=== PATIENT | male | born 1975 | race Caucasian/White ===

== ENCOUNTER → 2018-03-08 11:32 | Outpatient (CLI) | payer OTHER, SELFPAY | PROVIDERS: PCP Nurse Practitioner; Visit Provider Nurse Practitioner | DX: Z00.8 Encounter for other general examination (principal) ==

== ENCOUNTER → 2022-01-28 11:06 | Outpatient (CLI) | payer OTHER, SELFPAY ==
[2022-01-28 20:22] LABS: Basophils # 0.1 K/mm3 (0-0.2); Basophils % 0.7 % (0.1-2.0); Eosinophils # 0.5 K/mm3 (0.0-0.4); Eosinophils % 4.4 % (0.1-12.0); Hematocrit 44.8 % (42.0-52.0); Hemoglobin 14.3 g/dL (14.1-18.0); Lymphocytes # 2.6 K/mm3 (0.7-4.5); Lymphocytes % 22.5 % (10-50); Mean Corpuscular Hemoglobin 32.1 pg (27.0-31.2); Mean Corpuscular Volume 100.2 fl (80-94); Mean Platelet Volume 9.3 fl (7.4-10.4); Monocytes # 0.8 K/mm3 (0.1-1.0); Monocytes % 7.2 % (1.7-9.3); Neutrophils # 7.6 K/mm3 (1.8-7.8); Neutrophils % 65.2 % (37.0-80.0); Platelet Count 348 K/mm3 (142-424); Red Blood Count 4.47 M/mm3 (4.60-6.20); Red Cell Distribution Width 13.9 % (11.5-17.5); White Blood Count 11.6 K/mm3 (4.8-10.8)
[2022-01-28 21:10] LABS: Hemoglobin A1C 5.7 % (4.0-6.0)
[2022-01-28 21:11] LABS: Alanine Aminotransferase 24 U/L (12-78); Albumin Level 4.3 g/dl (3.5-5.0); Albumin/Globulin Ratio 1.6 (1.1-1.8); Alkaline Phosphatase 138 U/L (38-126); Aspartate Amino Transferase 33 U/L (17-59); Bilirubin,Total 0.2 mg/dl (0.2-1.3); Blood Urea Nitrogen 17 mg/dl (9-20); Calcium 9.6 mg/dl (8.4-10.2); Carbon Dioxide 28 mmol/L (22.0-30.0); Chloride 100 mmol/L (98-107); Cholesterol 171 mg/dl (140-200); Estimated Glomerular Filt Rate 90 ml/min (>60); GFR (African American) 109 ML/MIN (>60); Globulin 2.7 g/dL (1.3-3.2); Glucose 99 mg/dl (74-100); HDL Cholesterol 34 mg/dl (40-60); Sodium 139 mmol/L (136-145); Triglycerides 266 mg/dl (30-150); VLDL Cholesterol 53 mg/dL (0-40)
[2022-01-28 21:28] LABS: Direct LDL Cholesterol 96.94 mg/dL (100-129)
[2022-01-28 23:06] LABS: 25-OH Vitamin D, Total 35.9 ng/mL (30-100)
== END ==
PROVIDERS: PCP Nurse Practitioner; Visit Provider Nurse Practitioner
DX: J06.9 Acute upper respiratory infection, unspecified (principal); I10 Essential (primary) hypertension; E55.9 Vitamin D deficiency, unspecified; E78.5 Hyperlipidemia, unspecified; E11.9 Type 2 diabetes mellitus without complications
CPT/HCPCS: 80053; 80061; 82306; 83036; 85025

== ENCOUNTER → 2022-05-27 23:30 | Outpatient (CLI) | payer OTHER, SELFPAY ==
[2022-05-27 18:37] LABS: Basophils # 0.1 K/mm3 (0-0.2); Basophils % 0.7 % (0.1-2.0); Eosinophils # 0.6 K/mm3 (0.0-0.4); Eosinophils % 4.6 % (0.1-12.0); Hematocrit 47.7 % (42.0-52.0); Hemoglobin 16.4 g/dL (14.1-18.0); Lymphocytes # 3.3 K/mm3 (0.7-4.5); Lymphocytes % 27.4 % (10-50); Mean Corpuscular HGB Conc 34.4 g/dL (31.8-35.4); Mean Corpuscular Volume 95.9 fl (80-94); Mean Platelet Volume 8.3 fl (7.4-10.4); Monocytes # 0.7 K/mm3 (0.1-1.0); Monocytes % 5.6 % (1.7-9.3); Neutrophils # 7.3 K/mm3 (1.8-7.8); Neutrophils % 61.7 % (37.0-80.0); Platelet Count 374 K/mm3 (142-424); Red Blood Count 4.97 M/mm3 (4.60-6.20); White Blood Count 11.9 K/mm3 (4.8-10.8)
== END ==
PROVIDERS: PCP Nurse Practitioner; Visit Provider Nurse Practitioner
DX: J44.9 Chronic obstructive pulmonary disease, unspecified (principal); R05.3 Chronic cough
CPT/HCPCS: 85025

== ENCOUNTER → 2022-05-29 11:15 | Outpatient (CLI) | payer OTHER, SELFPAY ==
--- NOTE | 2022-05-29 11:19 | XR_ITS ---
FINAL REPORT CLINICAL HISTORY: cough, COPD, diminished breath sounds RML FINDINGS: PA and lateral views of the chest are obtained. There is no prior exam for comparison. The cardiac and mediastinal silhouettes are within normal limits. The lungs are clear. There is no pleural effusion, pneumothorax, or acute osseous abnormality. IMPRESSION: No radiographic evidence of acute cardiac or pulmonary disease. Reviewed, Interpreted and Dictated by Erin Bernstein MD Transcribed by Jannet Acevedo Authenticated and [facility]
--- NOTE | 2022-05-29 11:19 | XR_ITS ---
FINAL REPORT CLINICAL HISTORY: neck pain with bilateral UE radiculopathy FINDINGS: AP, lateral, and odontoid views of the cervical spine were obtained. The odontoid view is limited as the tip of the odontoid process is obscured by overlying soft tissue. The lateral masses of C1 and C2 are aligned. On the lateral view, there is no fracture or malalignment. There is multilevel degenerative disc disease, most pronounced at C5-6 and C6-7. Precervical soft tissues are within normal limits. IMPRESSION: Multilevel degenerative disc disease. Reviewed, Interpreted and Dictated by Erin Bernstein MD Transcribed by Jannet Acevedo Authenticated and [facility]
== END ==
PROVIDERS: PCP Nurse Practitioner; Visit Provider Nurse Practitioner
DX: J44.9 Chronic obstructive pulmonary disease, unspecified (principal); R05.3 Chronic cough; M54.2 Cervicalgia; M54.12 Radiculopathy, cervical region
CPT/HCPCS: 71046; 72040

== ENCOUNTER → 2023-01-20 08:27 | Outpatient (CLI) | payer OTHER, SELFPAY ==
[2023-01-20 19:24] LABS: Alanine Aminotransferase 44 U/L (12-78); Albumin Level 4.6 g/dl (3.5-5.0); Albumin/Globulin Ratio 1.4 (1.1-1.8); Alkaline Phosphatase 121 U/L (38-126); Anion Gap 16.1 mEq/L (5-15); Aspartate Amino Transferase 48 U/L (17-59); Bilirubin,Total 0.3 mg/dl (0.2-1.3); Blood Urea Nitrogen 13 mg/dl (9-20); Calcium 9.7 mg/dl (8.4-10.2); Carbon Dioxide 25 mmol/L (22.0-30.0); Chloride 102 mmol/L (98-107); Estimated Glomerular Filt Rate 71 ml/min (>60); GFR (African American) 86 ML/MIN (>60); Globulin 3.4 g/dL (1.3-3.2); Glucose 104 mg/dl (74-100); Potassium 4.1 mmoL/L (3.5-5.1); Sodium 139 mmol/L (136-145)
[2023-01-20 19:59] LABS: Basophils # 0.1 K/mm3 (0-0.2); Basophils % 0.5 % (0.1-2.0); Eosinophils # 0.4 K/mm3 (0.0-0.4); Eosinophils % 3.5 % (0.1-12.0); Hemoglobin 17.2 g/dL (14.1-18.0); Lymphocytes # 3.3 K/mm3 (0.7-4.5); Lymphocytes % 28.3 % (10-50); Mean Corpuscular HGB Conc 34.3 g/dL (31.8-35.4); Mean Corpuscular Volume 96.1 fl (80-94); Mean Platelet Volume 9.1 fl (7.4-10.4); Monocytes # 0.7 K/mm3 (0.1-1.0); Monocytes % 5.9 % (1.7-9.3); Neutrophils # 7.2 K/mm3 (1.8-7.8); Neutrophils % 61.8 % (37.0-80.0); Platelet Count 279 K/mm3 (142-424); Red Blood Count 5.21 M/mm3 (4.60-6.20); Red Cell Distribution Width 13.8 % (11.5-17.5); White Blood Count 11.7 K/mm3 (4.8-10.8)
== END ==
PROVIDERS: PCP Nurse Practitioner; Visit Provider Nurse Practitioner
DX: M79.671 Pain in right foot (principal); M79.672 Pain in left foot
CPT/HCPCS: 80053; 84550; 85025

== ENCOUNTER 2023-06-22 12:47 | Outpatient (CLI) | payer OTHER, SELFPAY ==
--- NOTE | 2023-06-22 13:58 | CT_ITS ---
FINAL REPORT CLINICAL HISTORY: lung cancer screening current smoker 1-2 ppd for 30 years hx copd FINDINGS: Axial images were obtained from the lung apex to the mid abdomen by computed tomography. Low-dose protocol was utilized. CTDl vol(mGy): 2.90 DLP (mGy-cm): 114.38 FINDINGS: There is no axillary adenopathy. There is no hilar or mediastinal adenopathy. There are moderate coronary artery calcifications. The heart size is normal. There is no pericardial or pleural effusion. Limited images of the upper abdomen demonstrate fatty infiltration of the liver. Lung window images demonstrate no suspicious infiltrate or nodule. There is mild scarring. IMPRESSION: Lung RADS category 1. Recommend 12 month follow-up low-dose chest CT. Reviewed, Interpreted and Dictated by Christiano Vasquez III, MD Transcribed by Lucia Montes Authenticated and [facility]
[2023-06-22] MEDS: ALBUTEROL 0.083% 2.5 MG/3 ML NEB IH (14:01)
--- NOTE | 2023-06-22 14:01 | PC.NURSE ---
Pre and Post Spirometry completed on Pt without incident. Albuterol 0.083% given via HHN, per protocol, Pt tolerated tx well.
== END 2023-06-22 23:59 ==
LOC: RT 12:47
PROVIDERS: PCP Nurse Practitioner; Visit Provider Nurse Practitioner
DX: J44.9 Chronic obstructive pulmonary disease, unspecified (principal); R05.3 Chronic cough; F17.210 Nicotine dependence, cigarettes, uncomplicated
CPT/HCPCS: 71271; 94060

== ENCOUNTER 2024-03-03 16:05 | Outpatient (CLI) | payer OTHER, SELFPAY ==
[2024-03-03 19:54] LABS: Microalbumin/Creatinine Ratio 77.1
[2024-03-03 20:02] LABS: Creatinine,Urine Random 121 mg/dL (Not Estab.)
== END 2024-03-03 23:59 | disposition home or self-care (01) ==
LOC: LAB.DROPOF 03-04 09:27
PROVIDERS: PCP Nurse Practitioner; Visit Provider Nurse Practitioner
DX: I10 Essential (primary) hypertension (principal); E78.5 Hyperlipidemia, unspecified; E11.9 Type 2 diabetes mellitus without complications; F41.9 Anxiety disorder, unspecified; J44.9 Chronic obstructive pulmonary disease, unspecified; Z12.5 Encounter for screening for malignant neoplasm of prostate; Z72.0 Tobacco use; Z79.84 Long term (current) use of oral hypoglycemic drugs
CPT/HCPCS: 82043; 82570

== ENCOUNTER 2024-03-07 10:06 | Outpatient (CLI) | payer OTHER, SELFPAY ==
[2024-03-07 10:36] LABS: Basophils # 0.1 K/mm3 (0-0.2); Basophils % 0.9 % (0.1-2.0); Eosinophils # 0.7 K/mm3 (0.0-0.4); Eosinophils % 5.5 % (0.1-12.0); Hematocrit 42.3 % (42.0-52.0); Hemoglobin 14.5 g/dL (14.1-18.0); Lymphocytes # 3.1 K/mm3 (0.7-4.5); Lymphocytes % 24.2 % (10-50); Mean Corpuscular HGB Conc 34.3 g/dL (31.8-35.4); Mean Corpuscular Hemoglobin 31.9 pg (27.0-31.2); Mean Corpuscular Volume 92.8 fl (80-94); Mean Platelet Volume 7.3 fl (7.4-10.4); Monocytes # 0.9 K/mm3 (0.1-1.0); Monocytes % 7.5 % (1.7-9.3); Neutrophils # 7.8 K/mm3 (1.8-7.8); Neutrophils % 61.8 % (37.0-80.0); Platelet Count 337 K/mm3 (142-424); Red Blood Count 4.56 M/mm3 (4.60-6.20); Red Cell Distribution Width 13.9 % (11.5-17.5); White Blood Count 12.6 K/mm3 (4.8-10.8)
[2024-03-07 10:47] LABS: Albumin Level 4.6 g/dl (3.5-5.0); Chloride 103 mmol/L (98-107); Potassium 4.3 mmoL/L (3.5-5.1); Sodium 139 mmol/L (136-145)
[2024-03-07 10:50] LABS: Alanine Aminotransferase 82 U/L (12-78); Albumin/Globulin Ratio 1.6 (1.1-1.8); Alkaline Phosphatase 84 U/L (38-126); Anion Gap 15.3 mEq/L (5-15); Aspartate Amino Transferase 46 U/L (17-59); Bilirubin,Total 0.5 mg/dl (0.2-1.3); Blood Urea Nitrogen 21 mg/dl (9-20); Carbon Dioxide 25 mmol/L (22.0-30.0); Cholesterol 235 mg/dl (140-200); Estimated Glomerular Filt Rate 64 ml/min (>60); GFR (African American) 78 ML/MIN (>60); Globulin 2.9 g/dL (1.3-3.2); Glucose 128 mg/dl (74-100); Total Protein,Serum 7.5 g/dl (6.3-8.2); Triglycerides 301 mg/dl (30-150); VLDL Cholesterol 60 mg/dL (0-40)
[2024-03-07 10:51] LABS: Chol/HDL Ratio 6.7 (1-3.5); HDL Cholesterol 35 mg/dl (40-60)
[2024-03-07 11:01] LABS: Direct LDL Cholesterol 145.86 mg/dL (100-129)
[2024-03-07 11:20] LABS: Thyroid Stimulating Hormone 3.15 uIU/mL (0.465-4.68)
[2024-03-07 12:08] LABS: Hemoglobin A1C 6.5 % (4.0-6.0)
[2024-03-07 12:39] LABS: Prostate Specific Ag Screen 1.3 ng/ml (0.0-4.0)
== END 2024-03-07 23:59 | disposition home or self-care (01) ==
PROVIDERS: PCP Nurse Practitioner; Visit Provider Nurse Practitioner
DX: J44.9 Chronic obstructive pulmonary disease, unspecified (principal); I10 Essential (primary) hypertension; E78.5 Hyperlipidemia, unspecified; E11.9 Type 2 diabetes mellitus without complications; F41.9 Anxiety disorder, unspecified; Z12.5 Encounter for screening for malignant neoplasm of prostate; Z72.0 Tobacco use; Z79.84 Long term (current) use of oral hypoglycemic drugs
CPT/HCPCS: 36415; 80050; 80053; 80061; 83036; 84443; 85025; G0103

== ENCOUNTER 2024-03-24 09:34 | Outpatient (CLI) | payer OTHER, SELFPAY ==
--- NOTE | 2024-03-24 12:42 | CT_ITS ---
FINAL REPORT TECHNIQUE: Axial CT images of the abdomen and pelvis were obtained before and after the administration of IV contrast. Oral contrast was administered.This study was performed with techniques to keep radiation doses as low as reasonably achievable (ALARA). Individualized dose reduction techniques using automated exposure control or adjustment of mA and/or kV according to the patient's size were employed. CLINICAL HISTORY: HEMATURIA COMPARISON: None FINDINGS: Abdomen: The lung bases are clear. The heart is normal in size. There is fatty infiltration of the liver without evidence of biliary ductal dilatation. . The spleen is unremarkable. No adrenal masses present. The pancreas has an unremarkable appearance. There is a 27 mm hypodense cyst in the medial right kidney. No evidence of renal stones, hydronephrosis, or ureteral stone is seen on either side. The aorta is normal in caliber. There is no free fluid or adenopathy. No mass or abnormal fluid collection is seen. Pelvis: The appendix is normal in appearance. Mild bladder wall thickening is present likely inflammatory. There is a small umbilical hernia present containing fat. There is no evidence of mass or adenopathy. There is no evidence of bowel obstruction. IMPRESSION: 27 mm cyst in the medial right kidney, without evidence of renal stones, hydronephrosis, or ureteral stones. Mild bladder wall thickening, likely inflammatory. Reviewed, Interpreted and Dictated by Christiano Vasquez III, MD Transcribed by Rosalinda Natarajan Authenticated and [facility]
[2024-03-24] MEDS: IOPAMIDOL-370 (76%);100ML BOTTLE 75 ML IV (13:21)
[2024-03-24] MEDS: SODIUM CHLORIDE 0.9% 10ML SYR (RAD ONLY) 10 ML IV (13:21)
== END 2024-03-24 23:59 | disposition home or self-care (01) ==
LOC: RAD 09:34
PROVIDERS: PCP Nurse Practitioner; Visit Provider Nurse Practitioner Family
DX: R31.29 Other microscopic hematuria (principal)
CPT/HCPCS: 74178; Q9967

== ENCOUNTER 2024-04-05 07:43 | Outpatient (CLI) | payer OTHER, SELFPAY ==
--- NOTE | 2024-04-05 | CA_ITS ---
APPROVED REPORT Exam: Pharmacologic Technologist: Sarah Beth Fish Ht: 6 ft 1 in Wt: 242 lbs BSA: 2.33 m2 HR: 73 bpm BP: 139/81 mmHg Stress Test Details Test: Lexiscan HR Resting HR: 73 bpm Max Heart Rate (APMHR): 170 bpm Max HR Achieved: 95 bpm Target HR (85% APMHR): 145 bpm % of APMHR: 56 Recovery HR: 76 bpm BP Resting BP: 139.0/81.0 mmHg Max BP: 134.0/76.0 mmHg Recovery BP: 132.0/72.0 mmHg ECG Resting ECG: Sinus rhythm Stress ECG Conclusion Symptoms: Dyspnea Arrhythmias/Ectopy: - ST-T Changes: Less than [address] depression Conclusion: Exercise myoview had to be aborted due to fatigue. Lexiscan, EKG unremarkable due to Lexiscan infusion. Electronically signed by : Diamond Peng MD 04/06/2024 11:10:46
--- NOTE | 2024-04-05 07:46 | NM_ITS ---
APPROVED REPORT Exam: Nuclear Stress Test Indication: SOB, Fatigue, HTN, DM, High cholesterol, Former tobacco use, Family history, CAD Patient Location: Outpatient Stress Tech: Sarah Beth Fish [place] Tech:Zofia Turner, ARRT, RT (R)(N) Ht: 6 ft 1 in Wt: 240 lbs HR: 74 bpm BP: 139/81 mmHg BSA: 2.33 m2 TID: 1.31 BMI: 31.6 History: SOB, Fatigue, HTN, DM, High cholesterol, Former tobacco use, Family history, CAD Procedure: Patient received 0.4 mg of intravenous Lexiscan, resting heart rate 74 bpm, resting blood pressure 139/81 mmHg, with Lexiscan maximum heart rate achieved was 95 bpm which is % of the maximum predicted heart rate and blood pressure was 134/76 mmHg. With Lexiscan, patient denied any complaint of chest pain. Cardiac Stress and Resting SPECT Images: Cardiac Stress and Resting SPECT images were obtained using technetium 99m Myoview 31.6 mCi stress and 9.90 mCi at rest. Resting and stress imaging in supine and prone positions demonstrate a medum-sized, moderate, partially reversible perfusion defect in the basal to mid inferior LV wall. There is increase in transient ischemic dilatation ratio (TID 1.31), suggestive of possible multivessel disease or balanced ischemia. Gated imaging demonstrates normal globall LV systolic function. There is mild hypokinesis of the basal inferior LV wall. LVEF is calculated at 58%. Conclusion: Medum-sized, moderate, partially reversible perfusion defect in the basal to mid inferior LV wall. There is increase in transient ischemic dilatation ratio (TID 1.31), suggestive of possible multivessel disease or balanced ischemia. Gated imaging demonstrates normal globall LV systolic function. There is mild hypokinesis of the basal inferior LV wall. LVEF is calculated at 58%. Electronically signed by : Diamond Peng MD 04/06/2024 11:01:27
[2024-04-05] MEDS: ISOTOPE MYOVIEW (PER STUDY) 1 DOSE IV (09:21)
[2024-04-05] MEDS: REGADENOSON 0.4MG/5ML SYRINGE 0.4 MG IV (09:21)
[2024-04-05] MEDS: SODIUM CHLORIDE 0.9% 10ML SYR (RAD ONLY) 10 ML IV ×2 (09:21)
== END 2024-04-05 23:59 | disposition home or self-care (01) ==
LOC: RAD 07:44
PROVIDERS: PCP Nurse Practitioner; Visit Provider Physician Assistant
DX: R06.02 Shortness of breath (principal); I25.10 Atherosclerotic heart disease of native coronary artery without angina pectoris; R53.83 Other fatigue
CPT/HCPCS: 78452; 93017; 93018; 93306; A9502; J2785

== ENCOUNTER 2024-05-04 11:59 | Inpatient (IN) | payer OTHER, SELFPAY ==
[2024-05-04] VITALS (68 sets, daily range): BP systolic 120–180; BP diastolic 72–110; PULSE 59–104; RESP 10–26; TEMP 37; O2SAT 93–100; BMI 31.4; BMI 31.5
--- NOTE | 2024-05-04 07:07 | IR_ITS ---
APPROVED REPORT Patient Location: Outpatient [place] Attendant: Denny Olson, RT (R) PROCEDURES Selective coronary angiogram Drug-eluting stent deployment to the proximal mid and distal dominant right coronary artery in a contiguous manner Placement of Graft Master covered stent in the proximal right coronary INDICATION High risk abnormal Myoview, Coronary artery disease, Coronary artery perforation Informed consent was obtained prior to the procedure. COMPLICATIONS None Estimated Blood Loss: Less than 10 mls TECHNIQUE One percent lidocaine used to anesthetize the right anterior aspect of the wrist. The right radial artery was accessed via the Seldinger technique. A 6 Niuean sheath was placed in the right radial artery. 2.5 mg of Verapamil, 800 mcg of nitroglycerin, 1mg Lidocaine and 5000 U Heparin were given through the arterial sheath. The 6 Niuean JL 3 guide catheter selective coronary angiogram. At the end of the diagnostic angiogram therapeutic heparin is administered giving a therapeutic ACT and the guide catheter was placed in the right coronary artery followed by Choice PT extra-support wire placed distally. A 4.5 x 30 mm Alon frontier stent was placed in the proximal right coronary artery and deployed at 20 vaenssa reducing the stenosis to 30%. Following this the guide liner was advanced and an additional 5 mm x 30 mm Alon frontier stent was placed distal to the for stent yet still overlapping and deployed at 20 vanessa. The balloon was brought back and deployed at 20 vanessa to further post dilate the proximal right coronary artery which failed to reduce the calcified concentric lesion. An additional 5 mm x 26 mm Alon frontier stent was placed distally to the second stent yet still overlapping and deployed at 14 vanessa. The balloon was brought back and deployed at 20 vanessa to match the 2 stents and then brought proximally to mesh and further post dilate the for stent which was placed which also failed to reduce the lesion. An additional 5 mm x 12 mm Alon frontier stent was placed proximal to the for stent which was deployed yet still overlapping due to what appeared to be an eccentric lip proximal to the first stent which continued to hang up the guide catheter the guide liner and previous stents. The 5 mm x 12 mm stent was deployed at 20 vanessa. This balloon was advanced to the area along the proximal bend which still had a 30% undersized or under deployed stent along the calcified concentric area. The balloon was deployed at 24 vanessa this time it did reduce and adequately expand the stent however this resulted in a large proximal perforation which was immediately recognized. The balloon was deployed at 6 vanessa at the perforation site for over 4-1/2 minutes until patient experienced second-degree AV block. The balloon was deflated which showed a slight improvement in the perforation but the perforation persisted. This technique was repeated approximately 5-6 different occasions to where at the end there remained a perforation however there was a significant reduction in the expansion. The balloon was quickly removed and a 4 mm x 19 mm Graftmaster stent was deployed at 20 vanessa proximally. A 5 mm x 12 mm balloon was deployed at 20 vanessa to dilate this stent and control of the perforation. The 5 mm balloon was advanced and deployed at 24 vanessa to dilate the graft master. Following this an additional 5 mm x 26 mm Alon frontier stent was placed in the proximal portion of the Graftmaster and deployed at 20 vanessa. At the end of the procedure the perforation had been adequately sealed. The patient always remained hemodynamically and electrically stable throughout the entire procedure. At the end of the procedure bedside echocardiogram was performed which demonstrated no RV collapse or right atrial collapse with minimal if any pericardial effusion identified. The patient was removed from the table taken to the postoperative area in stable condition ANGIOGRAPHIC RESULTS The left main artery Normal The left anterior descending artery Has proximal 10 to 20% stenosis with mid vessel calcified 20% stenosis The circumflex artery Gives rise to a moderate-sized ramus intermedius which has a proximal 30% stenosis. The circumflex artery itself has 10 to 20% stenosis The right coronary artery Massively large and dominant with proximal 70% concentric calcified stenosis with additional 40% diffuse mid vessel stenoses along tortuous bends with a distal 60 to 70% stenosis. This gives rise to massively large posterior descending artery and moderate to large posterior lateral branch. Both vessels have diffuse 10 to 20% stenosis The LAUREN ventriculogram reveals Not performed The left ventricular end-diastolic pressure Not measured IMPRESSION Severe disease throughout the right coronary artery as described above Stenting of the proximal mid and distal dominant right coronary artery in a contiguous manner which resulted in large proximal perforation which was adequately sealed with 2 contiguous Graftmaster stents PLAN 1. Effient and aspirin 2. Admit patient overnight and monitor on telemetry 3. Echocardiogram first thing in the morning to evaluate for pericardial effusion 4. Monitor closely for potential cardiac tamponade 5. Avoidance of tobacco products 6. Risk factor modification 7. Cardiac rehabilitation Electronically signed by : Sukhdev Toribio MD 05/05/2024 10:30:57
[2024-05-04 08:48] LABS: Basophils # 0.1 K/mm3 (0-0.2); Basophils % 0.8 % (0.1-2.0); Eosinophils # 0.6 K/mm3 (0.0-0.4); Eosinophils % 5.3 % (0.1-12.0); Hematocrit 39.2 % (42.0-52.0); Hemoglobin 13.4 g/dL (14.1-18.0); Lymphocytes # 3.7 K/mm3 (0.7-4.5); Lymphocytes % 31.7 % (10-50); Mean Corpuscular HGB Conc 34.2 g/dL (31.8-35.4); Mean Corpuscular Hemoglobin 31.6 pg (27.0-31.2); Mean Corpuscular Volume 92.5 fl (80-94); Mean Platelet Volume 9.3 fl (7.4-10.4); Monocytes # 1.1 K/mm3 (0.1-1.0); Monocytes % 9.5 % (1.7-9.3); Neutrophils # 6.1 K/mm3 (1.8-7.8); Neutrophils % 52.4 % (37.0-80.0); Platelet Count 283 K/mm3 (142-424); Red Blood Count 4.24 M/mm3 (4.60-6.20); Red Cell Distribution Width 12.8 % (11.5-17.5); White Blood Count 11.5 K/mm3 (4.8-10.8)
[2024-05-04 08:56] LABS: Chloride 103 mmol/L (98-107); Sodium 133 mmol/L (136-145)
[2024-05-04 08:59] LABS: Blood Urea Nitrogen 20 mg/dl (9-20); Calcium 9.2 mg/dl (8.4-10.2); Carbon Dioxide 22 mmol/L (22.0-30.0); Creatinine Clearance Estimated 123 mL/min (50-200); Estimated Glomerular Filt Rate 71 ml/min (>60); GFR (African American) 86 ML/MIN (>60); Glucose 161 mg/dl (74-100)
[2024-05-04 09:09] LABS: Anion Gap 11.9 mEq/L (5-15); Potassium 3.9 mmoL/L (3.5-5.1)
[2024-05-04] MEDS: diphenhydrAMINE 50MG/ML VIAL 50 MG IV (09:52)
[2024-05-04] MEDS: HEPARIN 1,000 UNITS/ML 10ML VIAL (CATH LAB) 10000 UNIT IV ×3 (09:52→11:22)
[2024-05-04] MEDS: VERAPAMIL 2.5MG/ML 2ML VIAL 2.5 MG IV (09:52)
[2024-05-04] MEDS: HEPARIN 1,000 UNITS/500ML NS (CATH LAB) 3000 UNIT IV (09:52)
[2024-05-04] MEDS: LIDOCAINE 1% 10ML MDV 20 ML IJ (09:52)
[2024-05-04] MEDS: 0.9 % SODIUM CHLORIDE 500 ML 25 ML IV (09:53)
[2024-05-04] MEDS: NITROGLYCERIN 800MCG/8ML SYR (CATH LAB) 800 MCG IA (09:53)
[2024-05-04] MEDS: FENTANYL 100MCG/2ML VIAL 50 MCG IV ×2 (10:15→10:20)
[2024-05-04] MEDS: MIDAZOLAM HCL 1MG/ML 5ML VIAL 1 MG IV ×2 (10:15→10:20)
[2024-05-04] MEDS: LABETALOL 20MG/4ML SYRINGE 20 MG IV (10:39)
[2024-05-04] MEDS: HYDRALAZINE 20MG/ML VIAL 20 MG IV ×2 (11:06→11:41)
[2024-05-04] MEDS: MIDAZOLAM 2MG/2ML VIAL 1 MG IV (11:23)
[2024-05-04] MEDS: PROPOFOL 10MG/ML 20ML VIAL 500 MG IV (11:23)
--- NOTE | 2024-05-04 11:36 | CA_ITS ---
APPROVED REPORT EXAM: Limited 2D Echocardiogram Software Quality Assurance Engineer: Celeste Medeiros RVT Ht: 6 ft 1 in Wt: 238lbs BSA: 2.32 BP: 198/101 mmHg Indications: CORONARY PERF DURING CATH,R/O EFFUSION Other Information Study Quality: Fair Conclusion This is a limited TTE to evaluate for pericardial effusion in the setting of right coronary artery perforation intra procedurally. Limited windows are obtained. There is a trivial, posterior pericardial effusion present. The RA/RV chamber cavities are not collapsed. The IVC is normal in size and collapsible. No echo indications of tamponade. Electronically signed by : Diamond Peng MD 05/05/2024 10:42:26
[2024-05-04] MEDS: PRASUGREL 10MG TAB 60 MG PO (12:04)
--- NOTE | 2024-05-04 12:08 | SUR.PHASEII ---
Family at bedside.
--- NOTE | 2024-05-04 12:14 | EXP.HP ---
History of Present Illness *Admission Date: 05/04/24 *Reason for visit:: Perforated coronary artery *History of present illness: 48-year-old male who presented for elective left heart cath after having abnormal stress test. Stress test showed reversible ischemic region. Brought in for heart cath today due to risk factors with diabetes, tobacco use, hyperlipidemia. During procedure, he was found to have dominant RCA with proximal stenosis and stenosis distally of 60 to 70%. Severe disease noted throughout the right coronary artery. Received stenting to the proximal mid and distal dominant RCA in a contiguous manner which resulted in large proximal perforation. This was sealed with 2 continuous Graftmaster stents. Hemostasis achieved. No further leak noted on fluoroscopy. Cardiology requested admission for monitoring overnight. On arrival to the floor, patient is chest pain-free. Stable on room air. Still little groggy from anesthesia but answering questions appropriately. Significant other is at bedside. Left heart Cath impression and recommendations Severe disease throughout the right coronary artery as described in full report. Stenting of the proximal mid and distal dominant right coronary artery in a contiguous manner which resulted in large proximal perforation which was adequately sealed with 2 contiguous Graftmaster stents Initiated on Effient and aspirin. Monitor overnight. Repeat echo in the morning. Monitor closely for potential cardiac tamponade [facility] Disclaimer: The information contained in this section may have been updated after the patient was seen, as this information can be updated by other users. Medical History Abnormal findings on diagnostic imaging of heart and coronary circulation Abnormal nuclear cardiac imaging test Abnormal computed tomography of bladder Fatigue SOB (shortness of breath) Coronary artery calcification seen on computed tomography Cigarette nicotine dependence Personal history of smoking Degenerative disc disease, cervical Chronic neck pain Chronic cough Osteoarthritis COPD (chronic obstructive pulmonary disease) Vitamin D deficiency Erectile dysfunction Anxiety Type 2 diabetes mellitus without complications Hyperlipidemia Essential hypertension Family History Other Cancer Heart attack Hypertension Social History Smoking Status: Current every day smoker smoking status start date: age 14 quit status: considering quitting alcohol intake: former substance use type: marijuana current occupational status: unemployed Travel in the last 8 weeks: None housing: house Have you lived/traveled outside [place] in past 30 days?: No Contact w/someone who lives/traveled outside US past 30 days?: No Exposure to someone with infectious disease in past 14 days?: No Do you have a fever (greater than 100.4 F or 38 C)?: No Have you tested positive for COVID-19: No Exposed to someone with COVID-19 in past 14 days?: No Do you have a sore throat?: No Do you have a cough?: No Do you have any weakness?: No Do you have any diarrhea?: No Are you experiencing any unusual bleeding?: No Do you have any muscle aches/pain?: No Do you have any abdominal pain?: No Are you experiencing loss of taste or smell?: No Other Medical History Have you received the Pneumonia Vaccine: No Review of Systems Review of Systems Review of systems (narrative): 14 point review of systems performed, pertinent positives and negatives as per HPI Meds Home Medications and Allergies Home Medications ?Medication ?Instructions ?Recorded ?Confirmed ?Type albuterol sulfate 90 mcg/actuation 2 puff inhalation QID PRN 07/10/23 05/04/24 Rx aerosol inhaler shortness of breath or wheezing #8.5 grams amlodipine 10 mg-benazepril 40 mg 1 cap PO DAILY #90 caps 10/07/23 05/04/24 Rx capsule (Lotrel) budesonide 160 mcg-glycopyr 9 2 inh inhalation BID #10.7 grams 03/03/24 05/04/24 Rx mcg-formot 4.8 mcg/actuation HFA inhaler (Breztri Aerosphere) hydrochlorothiazide 12.5 mg tablet 12.5 mg PO DAILY #90 tabs 03/03/24 05/04/24 Rx venlafaxine 150 mg 150 mg PO DAILY 03/03/24 05/04/24 History capsule,extended release 24 hr metformin 500 mg tablet,extended 500 mg PO DAILY #90 tabs 03/14/24 05/04/24 Rx release 24 hr metoprolol succinate 25 mg 25 mg PO DAILY #30 tabs 03/24/24 05/04/24 Rx tablet,extended release 24 hr diclofenac sodium 75 mg 75 mg PO BIDWMEAL 05/04/24 05/04/24 History tablet,delayed release rosuvastatin 10 mg tablet 10 mg PO HS 05/04/24 05/04/24 History sildenafil (pulm.hypertension) 20 20 mg PO NEEDED PRN Sexual 05/04/24 05/04/24 History mg tablet Activity New Prescriptions to Start Prescriptions: Allergies Allergy/AdvReac Type Severity Reaction Status Date / Time No Known Allergies Allergy Verified 05/04/24 16:53 Exam Data for Last 24 hours Vital signs and Labs for Last 24 Hours: Temp Pulse Resp BP Pulse Ox O2 Del Method O2 Flow Rate 98.6 F 83 18 142/86 H 97 Room Air 6 05/04/24 08:34 05/04/24 12:05 05/04/24 12:05 05/04/24 12:05 05/04/24 12:05 05/04/24 12:05 05/04/24 11:35 Laboratory Results - last 24 hr 05/04/24 08:38: WBC 11.5 H, RBC 4.24 L, Hgb 13.4 L, Hct 39.2 L, MCV 92.5, MCH 31.6 H, MCHC 34.2, RDW 12.8, Plt Count 283, MPV 9.3, Neut % (Auto) 52.4, Lymph % (Auto) 31.7, [place] % (Auto) 9.5 H, Eos % (Auto) 5.3, Baso % (Auto) 0.8, Neut # (Auto) 6.1, Lymph # (Auto) 3.7, [place] # (Auto) 1.1 H, Eos # (Auto) 0.6 H, Baso # (Auto) 0.1, Sodium 133 L, Potassium 3.9, Chloride 103, Carbon Dioxide 22, Anion Gap 11.9, BUN 20, Creatinine 1.10, Estimated Creat Clear 123, Estimated GFR 71, Est GFR ( Amer) 86, Glucose 161 H, Calcium 9.2 I & O for Last 24 hours: Intake & Output 05/01/24 05/02/24 05/03/24 05/04/24 23:59 23:59 23:59 23:59 Weight 107.955 kg Constitutional Constitutional: no acute distress, obese, chronically ill appearing and cooperative *Routine HEENT Exam Head: Present normocephalic Eye: Present EOMI and PERRL ENT: Present mucous membranes moist *Routine Neck Exam Neck: Present supple; Absent lymphadenopathy *Routine Respiratory Exam Respiratory: Present CTA bilaterally; Absent respiratory distress, rhonchi, stridor, wheezes or crackles *Routine Cardiovascular Exam Cardiovascular: Present RRR *Routine Abdominal Exam Abdominal: Present soft and normoactive bowel sounds; Absent tenderness *Routine Rectal Exam Rectal:: deferred *Routine Genitalia Exam Genitalia:: deferred *Routine Extremities Exam Extremities: Absent cyanosis, clubbing or edema Comments: No bleeding from right wrist insertion site *Routine Skin Exam Skin: Present warm; Absent rash *Routine Neurological Exam Neurological: Present alert, oriented X3 and moving all extremities; Absent altered mental status Assessment and Plan *Assessment and plan (1) Coronary artery dissection: Status: Acute Category: Medical Code(s): I25.42 - Coronary artery dissection (2) Coronary artery disease: Status: Acute Category: Medical Code(s): I25.10 - Atherosclerotic heart disease of [place] coronary artery without angina pectoris (3) PTSD (post-traumatic stress disorder): Status: Acute Category: Medical Code(s): F43.10 - Post-traumatic stress disorder, unspecified (4) History of substance abuse: Status: Acute Category: Medical Code(s): F19.11 - Other psychoactive substance abuse, in remission (5) COPD (chronic obstructive pulmonary disease): Status: Acute Qualifiers: COPD type: unspecified COPD Qualified Code(s): J44.9 - Chronic obstructive pulmonary disease, unspecified Category: Medical Code(s): J44.9 - Chronic obstructive pulmonary disease, unspecified (6) Type 2 diabetes mellitus without complications: Status: Acute Qualifiers: Diabetes mellitus care home insulin use: without care home use Qualified Code(s): E11.9 - Type 2 diabetes mellitus without complications Category: Medical Code(s): E11.9 - Type 2 diabetes mellitus without complications (7) Anxiety: Status: Acute Category: Medical Code(s): F41.9 - Anxiety disorder, unspecified (8) Hyperlipidemia: Status: Acute Qualifiers: Hyperlipidemia type: other hyperlipidemia Qualified Code(s): E78.49 - Other hyperlipidemia Category: Medical Code(s): E78.5 - Hyperlipidemia, unspecified (9) Essential hypertension: Status: Acute Category: Medical Code(s): I10 - Essential (primary) hypertension Plan 48-year-old male who presented for elective left heart cath after abnormal stress test. During procedure had a complication with dissection/perforation of RCA. Hemostasis achieved with graft stent. Discussed case with cardiology, request admission for monitoring overnight and repeat echo in the morning to monitor for stability. I agreed to admit for further management. Patient hemodynamically stable at this time. Will monitor in the ICU on telemetry given high risk for decompensation if he develops further bleeding. Received 5 stents and 2 grafts overall. 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 Hemostasis achieved with Graftmaster stents. -No further leak identified in the Golf Cart Mechanic on fluoroscopy. -Monitor overnight for tamponade. Continuous telemetry -Recommend echocardiogram in the morning to evaluate for effusion and Tylenol - Continue aspirin 81 mg daily, Lipitor 80 mg nightly, Effient 10 mg daily -Spironolactone 25 mg daily, metoprolol succinate 25 mg daily, irbesartan 75 mg daily for blood pressure - Hemoglobin stable at 13.4, kidney function normal with BUN 20, creatinine 1.1. Repeat CBC, CMP, magnesium ordered for the morning Diabetes: Continue sliding scale insulin with fingersticks ACHS. Metformin 500 mg daily. A1c pending, 6.5 in February PTSD: Continue venlafaxine 150 mg daily, diarrhea tach and required significant sedation during heart cath. Monitor overnight for anxiety needs midazolam 5 mg IV as needed every 8 hours for severe anxiety Full code Heparinized in Golf Cart Mechanic Cardiac/diabetic diet
[2024-05-04] MEDS: MORPHINE 4MG/ML SYRINGE 4 MG IV (12:23)
--- NOTE | 2024-05-04 12:36 | CA_ITS ---
APPROVED REPORT EXAM: Limited 2D Echocardiogram Instructor [employer]: RENETTA Weber, RVS Ht: 6 ft 0 in Wt: 238lbs BSA: 2.29 BP: 121/56 mmHg Indications: CAD, Smoker, S/p cath with Coronary rupture. Echo Enhancing Agent Comments: Limited due to patient agitation 2D Dimensions LVEF (Visual) 56.00 % Other Information Study Quality: Fair Conclusion This is a limited TTE to evaluate for pericardial effusion post cardiac catheterization in the setting of right coronary artery perforation. Limited windows are obtained. There is a trivial, posterior pericardial effusion present. No evidence of chamber collapse. The IVC is not well-visualized in the study. Grossly, no obvious echo indications of tamponade. Electronically signed by : Diamond Peng MD 05/05/2024 10:44:00
--- NOTE | 2024-05-04 12:37 | SUR.PHASEII ---
Pt affect is very flat and will not answer nurse for most questions, gave pt urinal, and medicated per mar for pain, gave water at beside. Family remains at bedside
--- NOTE | 2024-05-04 12:39 | SUR.PHASEII ---
Notified RT/echo of echo
--- NOTE | 2024-05-04 12:42 | SUR.PHASEII ---
Echo at bedside
--- NOTE | 2024-05-04 12:54 | P.CONCA_ITS ---
History of Present Illness History of Present Illness Consult date: 05/04/24 Requesting physician: Sukhdev Toribio Consult reason: known to you Chief complaint: exertional syncope History of present illness: 48-year-old white male recently referred to our office for evaluation of exertional syncope and shortness of breath with cardiovascular risk factors including hypertension, hyperlipidemia, COPD former tobacco use current vape user, diabetes with A1c 6.5%, prior alcohol and marijuana use status post rehab and ongoing PTSD. Of note he also had a history of hematuria and was seeing urology about stent placement. Patient underwent 2D echo which was unremarkable but GXT Myoview showed a defect in the basal to mid inferior LV wall with TID of 1.3 so he was referred for left heart cath. Patient presented today for heart cath and had balloon initiated dissection of the right coronary artery during the procedure. He had a stent graft placed and immediate bedside echo revealed no significant pericardial effusion. All 4 chambers had good wall motion and patient's vitals were stable. Decision was made to keep patient for observation overnight. Of note patient did become extremely diaphoretic during the procedure and required significant amounts of sedation so there is question whether he was withdrawing or currently using substances. I saw patient in [facility] recovery and he denied any recent substance or alcohol use. He has mild chest pain at rest at this time. Vitals are stable. [facility] Disclaimer: The information contained in this section may have been updated after the patient was seen, as this information can be updated by other users. Medical History Abnormal findings on diagnostic imaging of heart and coronary circulation Abnormal nuclear cardiac imaging test Abnormal computed tomography of bladder Fatigue SOB (shortness of breath) Coronary artery calcification seen on computed tomography Cigarette nicotine dependence Personal history of smoking Degenerative disc disease, cervical Chronic neck pain Chronic cough Osteoarthritis COPD (chronic obstructive pulmonary disease) Vitamin D deficiency Erectile dysfunction Anxiety Type 2 diabetes mellitus without complications Hyperlipidemia Essential hypertension Family History Other Cancer Heart attack Hypertension Social History Smoking Status: Current every day smoker smoking status start date: age 14 quit status: considering quitting alcohol intake: former substance use type: marijuana current occupational status: unemployed Travel in the last 8 weeks: None housing: house Have you lived/traveled outside [place] in past 30 days?: No Contact w/someone who lives/traveled outside US past 30 days?: No Exposure to someone with infectious disease in past 14 days?: No Do you have a fever (greater than 100.4 F or 38 C)?: No Have you tested positive for COVID-19: No Exposed to someone with COVID-19 in past 14 days?: No Do you have a sore throat?: No Do you have a cough?: No Do you have any weakness?: No Do you have any diarrhea?: No Are you experiencing any unusual bleeding?: No Do you have any muscle aches/pain?: No Do you have any abdominal pain?: No Are you experiencing loss of taste or smell?: No Review of Systems Constitutional Constitutional: Denies fatigue and Denies weakness Eyes Eyes: Denies loss of vision ENT Ears, Nose, Mouth, and Throat: Denies hearing loss and Denies vertigo *Cardiovascular Cardiovascular: Reports chest pain, Denies dyspnea and Denies syncope *Respiratory Respiratory: Denies cough and Denies dyspnea *Gastrointestinal Gastrointestinal: Denies change in stool character, Denies nausea and Denies vomiting *Genitourinary Genitourinary: Denies difficulty urinating *Musculoskeletal Musculoskeletal: Denies muscle weakness Integumentary/Breasts Skin/Breast: Denies changing lesions *Neurologic Neurologic: Denies loss of vision, Denies syncope, Denies vertigo and Denies weakness Endocrine Endocrine: Denies fatigue Exam Data for Last 24 hours Vital signs and Labs for Last 24 Hours: Temp Pulse Resp BP Pulse Ox O2 Del Method O2 Flow Rate 98.6 F 82 20 150/102 H 96 Room Air 6 05/04/24 08:34 05/04/24 12:50 05/04/24 12:50 05/04/24 12:50 05/04/24 12:50 05/04/24 12:50 05/04/24 11:35 Laboratory Results - last 24 hr 05/04/24 08:38: WBC 11.5 H, RBC 4.24 L, Hgb 13.4 L, Hct 39.2 L, MCV 92.5, MCH 31.6 H, MCHC 34.2, RDW 12.8, Plt Count 283, MPV 9.3, Neut % (Auto) 52.4, Lymph % (Auto) 31.7, [place] % (Auto) 9.5 H, Eos % (Auto) 5.3, Baso % (Auto) 0.8, Neut # (Auto) 6.1, Lymph # (Auto) 3.7, [place] # (Auto) 1.1 H, Eos # (Auto) 0.6 H, Baso # (Auto) 0.1, Sodium 133 L, Potassium 3.9, Chloride 103, Carbon Dioxide 22, Anion Gap 11.9, BUN 20, Creatinine 1.10, Estimated Creat Clear 123, Estimated GFR 71, Est GFR ( Amer) 86, Glucose 161 H, Calcium 9.2 I & O for Last 24 hours: Intake & Output 05/01/24 05/02/24 05/03/24 05/04/24 23:59 23:59 23:59 23:59 Weight 238 lb Constitutional Constitutional: no acute distress and cooperative *Routine HEENT Exam Eye: Present PERRL *Routine Respiratory Exam Respiratory: Present CTA bilaterally; Absent accessory muscle use, wheezes or crackles *Routine Cardiovascular Exam Cardiovascular: Present RRR, Normal S1 and Normal S2; Absent murmur, gallop or rubs *Routine Abdominal Exam Abdominal: Present soft; Absent tenderness *Routine Extremities Exam Extremities: Present pulses intact; Absent cyanosis or edema *Routine Skin Exam Skin: Present intact; Absent erythema or wounds *Routine Neurological Exam Neurological: Present alert and oriented X3 Comments: still groggy post sedation Routine Psychiatric Exam Psychiatric: Present cooperative Meds Home Medications and Allergies Home Medications ?Medication ?Instructions ?Recorded ?Confirmed ?Type albuterol sulfate 90 mcg/actuation 2 puff inhalation QID PRN 07/10/23 05/04/24 Rx aerosol inhaler shortness of breath or wheezing #8.5 grams amlodipine 10 mg-benazepril 40 mg 1 cap PO DAILY #90 caps 10/07/23 05/04/24 Rx capsule (Lotrel) budesonide 160 mcg-glycopyr 9 2 inh inhalation BID #10.7 grams 03/03/24 05/04/24 Rx mcg-formot 4.8 mcg/actuation HFA inhaler (Breztri Aerosphere) hydrochlorothiazide 12.5 mg tablet 12.5 mg PO DAILY #90 tabs 03/03/24 05/04/24 Rx venlafaxine 150 mg 150 mg PO DAILY 03/03/24 05/04/24 History capsule,extended release 24 hr metformin 500 mg tablet,extended 500 mg PO DAILY #90 tabs 03/14/24 05/04/24 Rx release 24 hr metoprolol succinate 25 mg 25 mg PO DAILY #30 tabs 03/24/24 05/04/24 Rx tablet,extended release 24 hr sildenafil (pulm.hypertension) 20 20 mg PO NEEDED PRN Sexual 05/04/2405/04 History mg tablet Activity aspirin 81 mg tablet,delayed 81 mg PO DAILY 30 days #30 tabs 05/05/24 Rx release atorvastatin 40 mg tablet 80 mg (2 x 40 mg) PO HS 30 days 05/05/24 Rx #60 tabs irbesartan 75 mg tablet 75 mg PO DAILY 30 days #30 tabs 05/05/24 Rx prasugrel 10 mg tablet 10 mg PO DAILY 30 days #30 tabs 05/05/24 Rx spironolactone 25 mg tablet 25 mg PO DAILY 30 days #30 tabs 05/05/24 Rx New Prescriptions to Start Prescriptions: amita Mendez,Clemente atorvastatin Andrea,Clemente irbesartan Clemente Mendez prasugrel Andrea,Clemente spironolactone Clemente Mendez Allergies Allergy/AdvReac Type Severity Reaction Status Date / Time No Known Allergies Allergy Verified 05/04/24 16:53 Assessment and Plan *Assessment and plan (1) Perforation of coronary artery: Status: Acute Category: Medical Code(s): T81.718A - Complication of other artery following a procedure, not elsewhere classified, initial encounter (2) Coronary artery disease: Status: Acute Category: Medical Code(s): I25.10 - Atherosclerotic heart disease of [place] coronary artery without angina pectoris (3) Personal history of smoking: Status: Acute Category: Social Hx Code(s): Z87.891 - Personal history of nicotine dependence (4) COPD (chronic obstructive pulmonary disease): Status: Acute Qualifiers: COPD type: unspecified COPD Qualified Code(s): J44.9 - Chronic obstructive pulmonary disease, unspecified Category: Medical Code(s): J44.9 - Chronic obstructive pulmonary disease, unspecified (5) Anxiety: Status: Acute Category: Medical Code(s): F41.9 - Anxiety disorder, unspecified (6) History of alcohol abuse: Status: Acute Category: Medical Code(s): F10.11 - Alcohol abuse, in remission (7) History of substance abuse: Status: Acute Category: Medical Code(s): F19.11 - Other psychoactive substance abuse, in remission (8) PTSD (post-traumatic stress disorder): Status: Acute Category: Medical Code(s): F43.10 - Post-traumatic stress disorder, unspecified (9) Type 2 diabetes mellitus without complications: Status: Acute Qualifiers: Diabetes mellitus senior care insulin use: without senior care use Qualified Code(s): E11.9 - Type 2 diabetes mellitus without complications Category: Medical Code(s): E11.9 - Type 2 diabetes mellitus without complications Plan Procedure related RCA Perforation - resoved with stent graft placement - bedside ECHO shows good 4 chamber motion and trivial pericardial effusion - will monitor closely for any signs of worsening bleed or hemodynamic compromise, no indication for transfer to another facility at this time CAD, NV - new dx this admission with stenting of RCA - Cont ASA, Effient - resume BB - increase statin to high dose COPD former tob - pt vapes now DM-II - last A1C 6.5 Htn - resume home meds, adjust as needed Hx of PTSD and substance abuse - prior ETOH and marijuana use - denies currently - required significant sedation for cath and was actively trying to get off the table and flex all limbs during procedure - monitor for withdrawal - discussed with Hospitalist *Pt is CV stable post procedure but will need monitoring in ICU overnight.
--- NOTE | 2024-05-04 13:06 | PC.NURSE ---
pt arrived to the ICU via stretcher with NIRALI Francois and NIRALI Rosales
--- NOTE | 2024-05-04 13:17 | HMH.PHAINT1 ---
Pharmacy Intervention Comments: home medication list using list from outpatient pharmacy
[2024-05-04] MEDS: SPIRONOLACTONE 25MG TABLET 25 MG PO (14:11)
[2024-05-04] MEDS: IRBESARTAN 75MG TABLET 75 MG PO (14:11)
[2024-05-04] MEDS: METOPROLOL SUCCINATE XL 25MG TABLET 25 MG PO (14:12)
[2024-05-04] MEDS: IOPAMIDOL-370 (76%);100ML BOTTLE 250 ML IV (14:14)
[2024-05-04 14:20] LABS: CATHL Activated Clotting Time 293 SEC (74-125)
[2024-05-04 17:48] LABS: POC Glucose,Bedside 192 (70-110)
[2024-05-04] MEDS: ATORVASTATIN 40MG TABLET 80 MG PO (20:18)
[2024-05-04] MEDS: LABETALOL 5MG/ML 20ML MDV 10 MG IV (22:14)
[2024-05-04] MEDS: LORazepam 2MG/ML VIAL 1 MG IV (22:27)
[2024-05-05] VITALS (32 sets, daily range): BP systolic 131–166; BP diastolic 65–98; PULSE 68–98; RESP 14–26; TEMP 36.7–36.9; O2SAT 94–99; BMI 31.3
[2024-05-05] MEDS: LABETALOL 5MG/ML 20ML MDV 10 MG IV (02:06)
[2024-05-05] MEDS: NICARDIPINE HCL 25 MG in 0.9 % SODIUM CHLORIDE 240 ML IV (03:40)
[2024-05-05 06:01] LABS: Basophils # 0.1 K/mm3 (0-0.2); Basophils % 0.3 % (0.1-2.0); Eosinophils # 0.1 K/mm3 (0.0-0.4); Eosinophils % 0.4 % (0.1-12.0); Hematocrit 39.9 % (42.0-52.0); Lymphocytes # 2.5 K/mm3 (0.7-4.5); Lymphocytes % 11.3 % (10-50); Mean Corpuscular HGB Conc 35.1 g/dL (31.8-35.4); Mean Corpuscular Hemoglobin 31.6 pg (27.0-31.2); Mean Corpuscular Volume 90.1 fl (80-94); Mean Platelet Volume 9.4 fl (7.4-10.4); Monocytes # 1.3 K/mm3 (0.1-1.0); Monocytes % 6.1 % (1.7-9.3); Neutrophils # 17.9 K/mm3 (1.8-7.8); Neutrophils % 81.5 % (37.0-80.0); Platelet Count 288 K/mm3 (142-424); Red Blood Count 4.43 M/mm3 (4.60-6.20); Red Cell Distribution Width 12.6 % (11.5-17.5); White Blood Count 21.9 K/mm3 (4.8-10.8)
[2024-05-05 06:10] LABS: MANUAL DIFFERENTIAL MANUAL DIFFERENTIAL (MANUAL DIFF)
[2024-05-05 06:43] LABS: Blood Urea Nitrogen 13 mg/dl (9-20); Calcium 9.4 mg/dl (8.4-10.2); Carbon Dioxide 23 mmol/L (22.0-30.0); Chloride 99 mmol/L (98-107); Creatinine Clearance Estimated 167 mL/min (50-200); Estimated Glomerular Filt Rate 102 ml/min (>60); GFR (African American) 124 ML/MIN (>60); Glucose 159 mg/dl (74-100); Sodium 133 mmol/L (136-145)
[2024-05-05 07:00] LABS: Lymphocytes % 13 % (10-50); Monocytes % 3 % (2-9); Neutrophils % 84 % (42-76); Platelet Estimate Normal; RBC Morphology Normal; Total Cells Counted 100
--- NOTE | 2024-05-05 07:00 | CA_ITS ---
APPROVED REPORT EXAM: Limited 2D Echocardiogram Director Imaging: Pratibha Cummings CRT Ht: 6 ft 0 in Wt: 236lbs BSA: 2.29 BP: 147/88 mmHg Indications: effusion check, cath 05/04/24 Other Information Study Quality: Fair Conclusion This is a limited TTE 1 day post procedurally in the setting of right coronary artery perforation s/p stenting. Limited windows are obtained. There is a trivial pericardial effusion present. No evidence of chamber collapse. The IVC is normal in size and collapsibility. Overall, compared to limited TTE is 1 day prior, there is no significant change. Electronically signed by : Diamond Peng MD 05/05/2024 10:45:19
--- NOTE | 2024-05-05 07:11 | EXP.DC.SUM ---
General Admission date:: 05/04/24 Discharge date: 05/05/24 HPI HPI HPI: 48-year-old male who presented for elective left heart cath after having abnormal stress test. Stress test showed reversible ischemic region. Brought in for heart cath today due to risk factors with diabetes, tobacco use, hyperlipidemia. During procedure, he was found to have dominant RCA with proximal stenosis and stenosis distally of 60 to 70%. Severe disease noted throughout the right coronary artery. Received stenting to the proximal mid and distal dominant RCA in a contiguous manner which resulted in large proximal perforation. This was sealed with 2 continuous Graftmaster stents. Hemostasis achieved. No further leak noted on fluoroscopy. Cardiology requested admission for monitoring overnight. On arrival to the floor, patient is chest pain-free. Stable on room air. Still little groggy from anesthesia but answering questions appropriately. Significant other is at bedside. Left heart Cath impression and recommendations Severe disease throughout the right coronary artery as described in full report. Stenting of the proximal mid and distal dominant right coronary artery in a contiguous manner which resulted in large proximal perforation which was adequately sealed with 2 contiguous Graftmaster stents Initiated on Effient and aspirin. Monitor overnight. Repeat echo in the morning. Monitor closely for potential cardiac tamponade Hospital Course Hospital Course Hospital Course: 48-year-old male who presented for elective left heart cath after abnormal stress test. During procedure had a complication with dissection/perforation of RCA. Hemostasis achieved with graft stent. Discussed case with cardiology, request admission for monitoring overnight and repeat echo in the morning to monitor for stability. I agreed to admit for further management. Patient hemodynamically stable at this time. Will monitor in the ICU on telemetry given high risk for decompensation if he develops further bleeding. Received 5 stents and 2 grafts overall. Well overnight. No cardiovascular or pulmonary symptoms. No chest pain following morning. Stable to discharge home with further management as an outpatient. 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 Hemostasis achieved with Graftmaster stents. No further leak identified in the [employer] on fluoroscopy. Trivial effusion noted on echo. Monitored overnight for tamponade. No signs of any distress. Plan to continue aspirin 81 mg daily, Lipitor 80 mg nightly, Effient 10 mg daily. Spironolactone 25 mg daily, metoprolol succinate 25 mg daily, resume home amlodipine/benazepril 10/40 mg daily - Hemoglobin stable at 13.4, kidney function normal with BUN 20, creatinine 1.1 - Echocardiogram obtained on day of discharge showing trivial pericardial effusion. No evidence of chamber collapse. Overall stable with no significant change from TTE compared the day before Diabetes: Treated with sliding scale insulin during admission. Stable overnight. A1c 6.4. Continue metformin 500 mg daily. PTSD: Continue venlafaxine 150 mg daily, diarrhea tach and required significant sedation during heart cath. Monitor overnight for anxiety, midazolam 5 mg IV as needed every 8 hours for severe anxiety. Overall did well with no significant anxiety attacks. Total time spent on discharge 32 minutes in counseling, documentation, chart review, and direct care with patient. Exam Data for Last 24 hours Vital signs and Labs for Last 24 Hours: Temp Pulse Resp BP Pulse Ox O2 Del Method O2 Flow Rate 98.4 F 86 20 137/84 96 Room Air 6 05/05/24 00:00 05/05/24 07:00 05/05/24 07:00 05/05/24 07:00 05/05/24 07:00 05/05/24 07:00 05/04/24 11:35 Laboratory Results - last 24 hr 05/04/24 08:38: WBC 11.5 H, RBC 4.24 L, Hgb 13.4 L, Hct 39.2 L, MCV 92.5, MCH 31.6 H, MCHC 34.2, RDW 12.8, Plt Count 283, MPV 9.3, Neut % (Auto) 52.4, Lymph % (Auto) 31.7, [place] % (Auto) 9.5 H, Eos % (Auto) 5.3, Baso % (Auto) 0.8, Neut # (Auto) 6.1, Lymph # (Auto) 3.7, [place] # (Auto) 1.1 H, Eos # (Auto) 0.6 H, Baso # (Auto) 0.1, Sodium 133 L, Potassium 3.9, Chloride 103, Carbon Dioxide 22, Anion Gap 11.9, BUN 20, Creatinine 1.10, Estimated Creat Clear 123, Estimated GFR 71, Est GFR ( Amer) 86, Glucose 161 H, Calcium 9.2 05/04/24 12:14: Activated Clotting Time 293 H* 05/04/24 17:19: POC Glucose 192 H 05/05/24 05:42: WBC 21.9 H* D, RBC 4.43 L, Hgb 14.0 L, Hct 39.9 L, MCV 90.1, MCH 31.6 H, MCHC 35.1, RDW 12.6, Plt Count 288, MPV 9.4, Neut % (Auto) 81.5 H, Lymph % (Auto) 11.3, [place] % (Auto) 6.1, Eos % (Auto) 0.4, Baso % (Auto) 0.3, Neut # (Auto) 17.9 H, Lymph # (Auto) 2.5, [place] # (Auto) 1.3 H, Eos # (Auto) 0.1, Baso # (Auto) 0.1, Total Counted 100, Neutrophils % (Manual) 84 H, Lymphocytes % (Manual) 13, Monocytes % (Manual) 3, Platelet Estimate Normal, RBC Morphology Normal, Sodium 133 L, Potassium 4.0, Chloride 99, Carbon Dioxide 23, Anion Gap 15.0, BUN 13 D, Creatinine 0.80 D, Estimated Creat Clear 167, Estimated GFR 102, Est GFR ( Amer) 124 D, Glucose 159 H, Calcium 9.4 I & O for Last 24 hours: Intake & Output 05/02/24 05/03/24 05/04/24 05/05/24 23:59 23:59 23:59 23:59 Intake Total 240 / 240 16.667 / 16.667 Output Total 2650 / 2900 600 / 600 Balance -2410 / -2660 -583.333 / -583.333 Weight 107.955 kg 107.139 kg Constitutional Constitutional: no acute distress, obese, chronically ill appearing and cooperative *Routine HEENT Exam Head: Present normocephalic Eye: Present EOMI and PERRL ENT: Present mucous membranes moist Comments: balding *Routine Neck Exam Neck: Present supple; Absent lymphadenopathy *Routine Respiratory Exam Respiratory: Present CTA bilaterally; Absent rhonchi, wheezes or crackles *Routine Cardiovascular Exam Cardiovascular: Present RRR *Routine Abdominal Exam Abdominal: Present soft and normoactive bowel sounds; Absent tenderness *Routine Rectal Exam Patient deferred: visual exam *Routine Exam Patient deferred: penile exam *Routine Extremities Exam Extremities: Absent cyanosis, clubbing or edema Comments: Right wrist clean dry and intact, no bleeding at radial insertion site *Routine Skin Exam Skin: Present intact and warm; Absent rash *Routine Neurological Exam Neurological: Present alert, oriented X3 and moving all extremities; Absent altered mental status Results Data Completed and Pending Labs on day of discharge: Labs from last 24 hours 05/05/24 05/04/24 05/04/24 05:42 17:19 12:14 WBC 21.9 H* D RBC 4.43 L Hgb 14.0 L Hct 39.9 L MCV 90.1 MCH 31.6 H MCHC 35.1 RDW 12.6 Plt Count 288 MPV 9.4 Neut % (Auto) 81.5 H Lymph % (Auto) 11.3 [place] % (Auto) 6.1 Eos % (Auto) 0.4 Baso % (Auto) 0.3 Neut # (Auto) 17.9 H Lymph # (Auto) 2.5 [place] # (Auto) 1.3 H Eos # (Auto) 0.1 Baso # (Auto) 0.1 Total Counted 100 Neutrophils % (Manual) 84 H Lymphocytes % (Manual) 13 Monocytes % (Manual) 3 Platelet Estimate Normal RBC Morphology Normal Activated Clotting Time 293 H* Sodium 133 L Potassium 4.0 Chloride 99 Carbon Dioxide 23 Anion Gap 15.0 BUN 13 D Creatinine 0.80 D Estimated Creat Clear 167 Estimated GFR 102 Est GFR ( Amer) 124 D Glucose 159 H POC Glucose 192 H Calcium 9.4 05/04/24 08:38 WBC 11.5 H RBC 4.24 L Hgb 13.4 L Hct 39.2 L MCV 92.5 MCH 31.6 H MCHC 34.2 RDW 12.8 Plt Count 283 MPV 9.3 Neut % (Auto) 52.4 Lymph % (Auto) 31.7 [place] % (Auto) 9.5 H Eos % (Auto) 5.3 Baso % (Auto) 0.8 Neut # (Auto) 6.1 Lymph # (Auto) 3.7 [place] # (Auto) 1.1 H Eos # (Auto) 0.6 H Baso # (Auto) 0.1 Total Counted Neutrophils % (Manual) Lymphocytes % (Manual) Monocytes % (Manual) Platelet Estimate RBC Morphology Activated Clotting Time Sodium 133 L Potassium 3.9 Chloride 103 Carbon Dioxide 22 Anion Gap 11.9 BUN 20 Creatinine 1.10 Estimated Creat Clear 123 Estimated GFR 71 Est GFR ( Amer) 86 Glucose 161 H POC Glucose Calcium 9.2 DS: Diagnosis Discharge Diagnosis (1) Coronary artery dissection: Status: Acute Code(s): I25.42 - Coronary artery dissection (2) Coronary artery disease: Status: Acute Code(s): I25.10 - Atherosclerotic heart disease of [place] coronary artery without angina pectoris (3) PTSD (post-traumatic stress disorder): Status: Acute Code(s): F43.10 - Post-traumatic stress disorder, unspecified (4) History of substance abuse: Status: Acute Code(s): F19.11 - Other psychoactive substance abuse, in remission (5) COPD (chronic obstructive pulmonary disease): Status: Acute Code(s): J44.9 - Chronic obstructive pulmonary disease, unspecified Qualifiers: COPD type: unspecified COPD Qualified Code(s): J44.9 - Chronic obstructive pulmonary disease, unspecified (6) Type 2 diabetes mellitus without complications: Status: Acute Code(s): E11.9 - Type 2 diabetes mellitus without complications Qualifiers: Diabetes mellitus fci insulin use: without fci use Qualified Code(s): E11.9 - Type 2 diabetes mellitus without complications (7) Anxiety: Status: Acute Code(s): F41.9 - Anxiety disorder, unspecified (8) Hyperlipidemia: Status: Acute Code(s): E78.5 - Hyperlipidemia, unspecified Qualifiers: Hyperlipidemia type: other hyperlipidemia Qualified Code(s): E78.49 - Other hyperlipidemia (9) Essential hypertension: Status: Acute Code(s): I10 - Essential (primary) hypertension Meds Home Medications and Allergies Home Medications ?Medication ?Instructions ?Recorded ?Confirmed ?Type albuterol sulfate 90 mcg/actuation 2 puff inhalation QID PRN 07/10/23 05/04/24 Rx aerosol inhaler shortness of breath or wheezing #8.5 grams amlodipine 10 mg-benazepril 40 mg 1 cap PO DAILY #90 caps 10/07/23 05/04/24 Rx capsule (Lotrel) budesonide 160 mcg-glycopyr 9 2 inh inhalation BID #10.7 grams 03/03/24 05/04/24 Rx mcg-formot 4.8 mcg/actuation HFA inhaler (Breztri Aerosphere) hydrochlorothiazide 12.5 mg tablet 12.5 mg PO DAILY #90 tabs 03/03/24 05/04/24 Rx venlafaxine 150 mg 150 mg PO DAILY 03/03/24 05/04/24 History capsule,extended release 24 hr metformin 500 mg tablet,extended 500 mg PO DAILY #90 tabs 03/14/24 05/04/24 Rx release 24 hr metoprolol succinate 25 mg 25 mg PO DAILY #30 tabs 03/24/24 05/04/24 Rx tablet,extended release 24 hr sildenafil (pulm.hypertension) 20 20 mg PO NEEDED PRN Sexual 05/04/24 05/04/24 History mg tablet Activity aspirin 81 mg tablet,delayed 81 mg PO DAILY 30 days #30 tabs 05/05/24 Rx release atorvastatin 40 mg tablet 80 mg (2 x 40 mg) PO HS 30 days 05/05/24 Rx #60 tabs prasugrel 10 mg tablet 10 mg PO DAILY 30 days #30 tabs 05/05/24 Rx spironolactone 25 mg tablet 25 mg PO DAILY 30 days #30 tabs 05/05/24 Rx New Prescriptions to Start Prescriptions: Clemente Dickinson atorvastatin Clemente Mendez prasugrel Andrea,Clemente spironolactone Clemente Mendez Allergies Allergy/AdvReac Type Severity Reaction Status Date / Time No Known Allergies Allergy Verified 05/04/24 16:53 Discharge Plan Disposition Patient Disposition: Home, Self-Care Condition: Fair Discharge Order Discharge Orders: Discharge Order (Routine); Ordered 05/05/24 Ordered By: Clemente Mendez Follow up Plan Follow up with: Delilah Nicholson APRN [Primary Care Provider] - Enter time for follow up Sukhdev Toribio MD [Staff Physician] - 05/11/24 3:00 pm Prescriptions/Medication Reconciliation: New atorvastatin 40 mg Tablet 80 mg PO HS 30 Days Qty: 60 0RF aspirin 81 mg Tablet,Delayed Release (Dr/Ec) 81 mg PO DAILY 30 Days Qty: 30 0RF spironolactone 25 mg Tablet 25 mg PO DAILY 30 Days Qty: 30 0RF prasugrel 10 mg Tablet 10 mg PO DAILY 30 Days Qty: 30 0RF Continued albuterol sulfate 90 mcg/actuation HFA aerosol inhaler 2 puff inhalation QID PRN (Reason: shortness of breath or wheezing) Qty: 8.5 12RF venlafaxine 150 mg capsule,extended release 24hr 150 mg PO DAILY hydrochlorothiazide 12.5 mg tablet 12.5 mg PO DAILY Qty: 90 3RF Breztri Aerosphere 160-9-4.8 mcg/actuation HFA aerosol inhaler 2 inh inhalation BID Qty: 10.7 5RF metoprolol succinate 25 mg tablet extended release 24 hr 25 mg PO DAILY Qty: 30 2RF amlodipine-benazepril [Lotrel] 10-40 mg capsule 1 cap PO DAILY Qty: 90 3RF metformin 500 mg tablet extended release 24 hr 500 mg PO DAILY Qty: 90 0RF sildenafil (pulm.hypertension) 20 mg tablet 20 mg PO NEEDED PRN (Reason: Sexual Activity) Rx Instructions: Take 2 to 3 Tablets by mouth once as needed for sexual activity. Discontinued diclofenac sodium 75 mg tablet,delayed release (DR/EC) 75 mg PO BIDWMEAL rosuvastatin 10 mg tablet 10 mg PO HS Problem Reconciliation Problems Reviewed?: Yes Patient Discharge Instructions ACTIVITY: Continue current activity DIET: continue same diet Patient Instructions: DI for Cardiac Catheterization, DI for Surgical Site Infection, DI for Moderate Sedation, DI for Post-Surgical Bleeding Print Language: [place] Providers Primary Care Provider: Delilah Nicholson Admit Provider: Clemente Mendez Attending Provider: Clemente Mendez
[2024-05-05] MEDS: VENLAFAXINE XR 75MG CAPSULE 150 MG PO (08:10)
[2024-05-05] MEDS: METOPROLOL SUCCINATE XL 25MG TABLET 25 MG PO (08:11)
[2024-05-05] MEDS: ASPIRIN EC 81MG TABLET 81 MG PO (08:11)
[2024-05-05] MEDS: SPIRONOLACTONE 25MG TABLET 25 MG PO (08:11)
[2024-05-05] MEDS: IRBESARTAN 75MG TABLET 75 MG PO (08:11)
[2024-05-05] MEDS: PRASUGREL 10MG TAB 10 MG PO (08:12)
--- NOTE | 2024-05-05 08:24 | XR_ITS ---
FINAL REPORT CLINICAL HISTORY: COPD, Chest Pain FINDINGS: SINGLE VIEW CHEST The heart is normal in size. The mediastinum is unremarkable. The lungs are clear. There is no pneumothorax. IMPRESSION: No acute process. Reviewed, Interpreted and Dictated by Acosta Jacinto MD Transcribed by Jannet Acevedo Authenticated and [facility]
--- NOTE | 2024-05-05 09:15 | PC.NURSE ---
Dr. Mendez at bedside for morning rounds and gave orders to discontinue the Cardine drip in order to see pts baseline BP in order to prepare for discharge today.
[2024-05-05 09:34] LABS: Hemoglobin A1C 6.4 % (4.0-6.0)
--- NOTE | 2024-05-05 09:55 | EXP.CARD.PN ---
Subjective Subjective Date: 05/05/24 Time: 09:00 Interval history: No events overnight. Feeling great this morning. BP stable. Very mild chest discomfort. Labs stable. Repeat limited ECHO pending. Exam Data for Last 24 hours Vital signs and Labs for Last 24 Hours: Temp Pulse Resp BP Pulse Ox O2 Del Method O2 Flow Rate 98.4 F 86 20 137/84 96 Room Air 6 05/05/24 00:00 05/05/24 07:00 05/05/24 07:00 05/05/24 07:00 05/05/24 07:00 05/05/24 07:00 05/04/24 11:35 Laboratory Results - last 24 hr 05/04/24 12:14: Activated Clotting Time 293 H* 05/04/24 17:19: POC Glucose 192 H 05/05/24 05:42: WBC 21.9 H* D, RBC 4.43 L, Hgb 14.0 L, Hct 39.9 L, MCV 90.1, MCH 31.6 H, MCHC 35.1, RDW 12.6, Plt Count 288, MPV 9.4, Neut % (Auto) 81.5 H, Lymph % (Auto) 11.3, [place] % (Auto) 6.1, Eos % (Auto) 0.4, Baso % (Auto) 0.3, Neut # (Auto) 17.9 H, Lymph # (Auto) 2.5, [place] # (Auto) 1.3 H, Eos # (Auto) 0.1, Baso # (Auto) 0.1, Total Counted 100, Neutrophils % (Manual) 84 H, Lymphocytes % (Manual) 13, Monocytes % (Manual) 3, Platelet Estimate Normal, RBC Morphology Normal, Sodium 133 L, Potassium 4.0, Chloride 99, Carbon Dioxide 23, Anion Gap 15.0, BUN 13 D, Creatinine 0.80 D, Estimated Creat Clear 167, Estimated GFR 102, Est GFR ( Amer) 124 D, Glucose 159 H, Hemoglobin A1c 6.4 H, Calcium 9.4 I & O for Last 24 hours: Intake & Output 05/02/24 05/03/24 05/04/24 05/05/24 23:59 23:59 23:59 23:59 Intake Total 240 / 240 16.667 / 16.667 Output Total 2650 / 2900 600 / 600 Balance -2410 / -2660 -583.333 / -583.333 Weight 238 lb 236 lb 3.2 oz Constitutional Constitutional: no acute distress and cooperative *Routine HEENT Exam Eye: Present PERRL *Routine Respiratory Exam Respiratory: Present CTA bilaterally; Absent accessory muscle use, wheezes or crackles *Routine Cardiovascular Exam Cardiovascular: Present RRR, Normal S1 and Normal S2; Absent murmur, gallop or rubs Comments: right radial cath site normal on inspection and palpation. mild tenderness. *Routine Abdominal Exam Abdominal: Present soft; Absent tenderness *Routine Extremities Exam Extremities: Present pulses intact; Absent cyanosis or edema *Routine Skin Exam Skin: Present intact; Absent erythema or wounds *Routine Neurological Exam Neurological: Present alert and oriented X3 Routine Psychiatric Exam Psychiatric: Present cooperative Progress Note: A&P Assessment and plan (1) Perforation of coronary artery: Status: Acute (2) Coronary artery disease: Status: Acute (3) PTSD (post-traumatic stress disorder): Status: Acute (4) History of substance abuse: Status: Acute (5) COPD (chronic obstructive pulmonary disease): Status: Acute (6) Type 2 diabetes mellitus without complications: Status: Acute (7) Anxiety: Status: Acute (8) Hyperlipidemia: Status: Acute (9) Essential hypertension: Status: Acute Assessment and Plan Assessment and Plan for All Diagnoses:: Procedure related RCA Perforation - resoved with stent graft placement - bedside ECHO shows good 4 chamber motion and trivial pericardial effusion - stable overnight - BP good, normal BP - repeat limited ECHO shows no change - trivial pericardial effusion. This was reviewed with patient in detail. CAD, NV - new dx this admission with stenting of RCA - Cont ASA, Effient - resume BB - increase statin to high dose COPD former tob - pt vapes now DM-II - last A1C 6.5 Htn - resume home meds, adjust as needed Hx of PTSD and substance abuse - prior ETOH and marijuana use - denies currently - required significant sedation for cath and was actively trying to get off the table and flex all limbs during procedure *CV stable for discharge home: - No lifting, pushing, pulling >10lbs with right wrist for 5 days. - Office f/u with us 1-2 weeks. - CV Discharge Meds: Aspirin 81 mg 1 p.o. daily Prasugrel 10 mg 1 p.o. daily Aldactone 25 mg 1 p.o. daily Atorvastatin 80 mg 1 p.o. nightly Metoprolol 25 mg 1 p.o. daily Amlodipine?benazepril 10-40 mg 1 p.o. daily
--- NOTE | 2024-05-05 15:00 | PC.NURSE ---
pt escorted to lobby by RT Kaila via wheelchair. pt IV was discontinued with tip intact. pt given discharge instructions including but not limited to, his prescriptions to slat pick[facility], post cath instructions and cardiac diet info. pt also instructed to follow up with his PCP about his glucose levels during his stay. pt pressure dressing remained in place and was clean dry and intact on discharge. no needs/complaints reported at this time
--- NOTE | 2024-05-06 11:37 | SW/DCPLANNER ---
Spoke with patient on the phone. Patient stated that he is doing well and glad he woke up today and his chest isnt tight. Patient stated that he is aware of his upcoming appointments and that it seems like he has one now all the time. 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 Patient stated that he has no concerns or questions at this time. Alicia Gross
== END 2024-05-05 15:10 | disposition home or self-care (01) | DRG 981 ==
LOC: ICU 11:59
PROVIDERS: Internal Medicine; Admitting Provider Internal Medicine Adolescent Medicine; PCP Nurse Practitioner; Visit Provider Internal Medicine Adolescent Medicine
PROC: 02703EZ Dilation of Coronary Artery, One Artery with Two Intraluminal Devices, Percutaneous Approach (ICD-10-PCS; principal; 2024-05-04 08:30)
DX: I97.51 Accidental puncture and laceration of a circulatory system organ or structure during a circulatory system procedure (principal); I25.42 Coronary artery dissection; I25.10 Atherosclerotic heart disease of native coronary artery without angina pectoris; I77.1 Stricture of artery; E11.9 Type 2 diabetes mellitus without complications; J44.9 Chronic obstructive pulmonary disease, unspecified; I10 Essential (primary) hypertension; E55.9 Vitamin D deficiency, unspecified; Z79.899 Other long term (current) drug therapy; Z79.84 Long term (current) use of oral hypoglycemic drugs; F43.10 Post-traumatic stress disorder, unspecified; Z87.891 Personal history of nicotine dependence; F19.11 Other psychoactive substance abuse, in remission
CPT/HCPCS: 36415; 71045; 80048; 82962; 83036; 85007; 85025; 85347; 92941; 93308; 99152; 99153; C1725; C1769; C1874; C9606; J0360; J1200; J1644; J1920; J2060; J2250; J2270; J2404; J3010; Q9967

== ENCOUNTER 2024-05-11 15:45 | Outpatient (CLI) | payer OTHER, SELFPAY ==
[2024-05-11 16:23] LABS: Basophils # 0.1 K/mm3 (0-0.2); Basophils % 0.7 % (0.1-2.0); Eosinophils # 0.4 K/mm3 (0.0-0.4); Eosinophils % 2.6 % (0.1-12.0); Hematocrit 42.8 % (42.0-52.0); Hemoglobin 14.8 g/dL (14.1-18.0); Lymphocytes # 3.6 K/mm3 (0.7-4.5); Lymphocytes % 23.3 % (10-50); Mean Corpuscular HGB Conc 34.6 g/dL (31.8-35.4); Mean Corpuscular Hemoglobin 31.2 pg (27.0-31.2); Mean Corpuscular Volume 90.3 fl (80-94); Mean Platelet Volume 9.5 fl (7.4-10.4); Monocytes # 1.6 K/mm3 (0.1-1.0); Monocytes % 9.9 % (1.7-9.3); Neutrophils # 9.9 K/mm3 (1.8-7.8); Neutrophils % 63.1 % (37.0-80.0); Platelet Count 400 K/mm3 (142-424); Red Blood Count 4.74 M/mm3 (4.60-6.20); Red Cell Distribution Width 12.3 % (11.5-17.5); White Blood Count 15.6 K/mm3 (4.8-10.8)
[2024-05-11 16:24] LABS: MANUAL DIFFERENTIAL MANUAL DIFFERENTIAL (MANUAL DIFF)
[2024-05-11 16:32] LABS: Eosinophils % 3 % (0-3); Lymphocytes % 26 % (10-50); Monocytes % 8 % (2-9); Neutrophils % 63 % (42-76); Total Cells Counted 100
[2024-05-11 16:33] LABS: Platelet Estimate Normal; RBC Morphology Normal
[2024-05-11 16:46] LABS: Alanine Aminotransferase 47 U/L (12-78); Albumin Level 4.6 g/dl (3.5-5.0); Alkaline Phosphatase 127 U/L (38-126); Anion Gap 19.3 mEq/L (5-15); Aspartate Amino Transferase 41 U/L (17-59); Bilirubin,Direct 0.2 mg/dl (0.0-0.4); Bilirubin,Indirect 0.3 mg/dL (0.0-0.9); Bilirubin,Total 0.5 mg/dl (0.2-1.3); Bilirubin,Unconjugated 0.3 mg/dL (0.0-1.1); Blood Urea Nitrogen 21 mg/dl (9-20); Calcium 9.9 mg/dl (8.4-10.2); Carbon Dioxide 19 mmol/L (22.0-30.0); Chloride 100 mmol/L (98-107); Estimated Glomerular Filt Rate 58 ml/min (>60); GFR (African American) 71 ML/MIN (>60); Glucose 120 mg/dl (74-100); Potassium 4.3 mmoL/L (3.5-5.1); Sodium 134 mmol/L (136-145); Total Protein,Serum 7.3 g/dl (6.3-8.2)
[2024-05-11 17:16] LABS: Thyroid Stimulating Hormone 3.43 uIU/mL (0.465-4.68)
[2024-05-11 18:54] LABS: Free T4 (Free Thyroxine) 0.86 ng/dl (0.78-2.19)
== END 2024-05-11 23:59 | disposition home or self-care (01) ==
LOC: LAB 15:46
PROVIDERS: PCP Nurse Practitioner; Visit Provider Internal Medicine
DX: R06.00 Dyspnea, unspecified (principal); R53.83 Other fatigue; T81.718A Complication of other artery following a procedure, not elsewhere classified, initial encounter; R06.02 Shortness of breath; I25.10 Atherosclerotic heart disease of native coronary artery without angina pectoris; Z87.891 Personal history of nicotine dependence; J44.9 Chronic obstructive pulmonary disease, unspecified; E11.9 Type 2 diabetes mellitus without complications; E78.49 Other hyperlipidemia; I10 Essential (primary) hypertension; K21.9 Gastro-esophageal reflux disease without esophagitis; Z79.84 Long term (current) use of oral hypoglycemic drugs
CPT/HCPCS: 36415; 80048; 80076; 84439; 84443; 85007; 85025; 85027

== ENCOUNTER 2024-05-16 14:09 | Outpatient (CLI) | payer OTHER, SELFPAY ==
[2024-05-16 15:00] LABS: Blood Urea Nitrogen 27 mg/dl (9-20); Estimated Glomerular Filt Rate 54 ml/min (>60); GFR (African American) 65 ML/MIN (>60)
[2024-05-17 08:13] LABS: PSA, Free 0.25 ng/mL; Prostate Specific Ag 0.7 ng/mL (0.0-4.0)
== END 2024-05-16 23:59 | disposition home or self-care (01) ==
LOC: LAB 14:09
PROVIDERS: PCP Nurse Practitioner; Visit Provider Urology
DX: R31.9 Hematuria, unspecified (principal)
CPT/HCPCS: 36415; 82565; 84153; 84154; 84520

== ENCOUNTER 2025-01-17 10:49 | Outpatient (CLI) | payer SELFPAY ==
--- OUTSIDE RECORDS SUMMARY | 2024-12-01 08:00 | XMS_ITS | Encounter Summary ---
Author Organization [facility] Address [address] [facility] [address] [place] [address] Care Team Providers Care Lens Finisher Name Role Phone Radha Mack MD Primary Care Provider [phone] Reason for Referral * Imaging (Routine) - Closed Specialty Diagnoses / Procedures Referred By Paula donovan Referred To Contact Diagnoses Hematuria, not otherwise specified Procedures US renal complete Radha Mack MD [address] [place] [address] Phone: tel: fax: [address] [phone] Referral ID Status Reason Start Date Expiration Date Visits Re quested Visits Authorized [id number] Closed 12/01/2024 12/31/2025 1 1 * Consultation (Routine) - Closed Specialty Diagnoses / Procedures Referred By Paula donovan Referred To Contact Cardiology Diagnoses Type 2 diabetes mellitus without complication Coronary arteriosclerosis, not otherwise specified Radha Mack MD [address] [place] [address] Phone: tel: fax: [facility] [address] [place] [address] Dr Iraheta [address] [place] [address] Phone: tel: fax: Referral ID Status Reason Start Date Expiration Date V isits Requested Visits Authorized [id number] Closed Specialty Services Required 12/01/2024 12/31/2025 1 1 Reason for Visit * Reason Comments Establish Care Diabetes UTI Encounter Details Date Type Department Care Team (Latest Contact Info) Description 12/01/2024 8:00 AM EDT Office Visit [facility] - Primary [facility] [address] [place] [address] Radha Mack MD [address] [place] [address] Routine general medical examination at a health care facility (Primary Dx); Dysuria; Type 2 diabetes mellitus without complication; Coronary arteriosclerosis, not otherwise specified; Syncope; Bilateral plantar fasciitis; Generalized anxiety disorder; Bipolar I disorder, most recent episode depression; Hepatitis C screening; Screening for cardiovascular condition; Body mass index (BMI) 31.0-31.9, adult; Hypertension; Encounter for therapeutic drug monitoring; Hematuria, not otherwise specified; Proteinuria, not otherwise specified Social History Tobacco Use Types Packs/Day Years Used Date Smoking Tobacco: Every Day Cigarettes Smokeless Tobacco: Never Tobacco Cessation:Ready to Q uit: Not Asked; Counseling Given: Not Answered Alcohol Use Standard Drinks/Week Comments Not Currently 0 (1 standard drink = 0.6 oz pur e alcohol) [facility] Utilities Answer Date Recorded In the past 12 months has [employer], gas, oil, or water [employer] threatened to shut off services in your home? No 12/01/2024 Overall Financial Resource Strain (CARDIA) Answe r Date Recorded How hard is it for you to pa y for the very basics like food, housing, medical care, and heating? Somewhat hard 12/01/2024 Hunger Vital Sign Answer Date Recorded Within the past 12 months, y ou worried that your food would run out before you got the money to buy more. Never true 12/02/19 25 Within the past 12 months, t he food you bought just didn't last and you didn't have money to get more. Never true 12/01/2024 PRAPARE - Transportation Answer Date Re corded In the past 12 months, has l ack of transportation kept you from medical appointments or from getting medications? No 11/12 In the past 12 months, has l ack of transportation kept you from meetings, work, or from getting things needed for daily living? No 12/01/2024 Housing Stability Vital Sign Answer Andres e Recorded In the last 12 months, was t here a time when you were not able to pay the mortgage or rent on time? No 12/01/2024 In the past 12 months, how m any times have you moved where you were living? 12 12/01/2024 At any time in the past 12 m [facility], were you homeless or living in a retirement (including now)? Yes 12/01/2024 Depression Answer Date Recorded PHQ-2 Total Score 2 12/01/2024 Interpersonal Safety Answer Date Record ed How often does anyone, ryan travis family and friends, physically hurt you? Never 12/01/2024 How often does anyone, ryan travis family and friends, threaten you with harm? Never 12/01/2024 Sex and Gender Information Value Date Recorded Sex Assigned at Not on file Legal Sex Male 3:31 PM EDT Gender Identity Not on file Sexual Orientation Not on file documented as of this encounter Last Filed Vital Signs Vital Sign Reading Time Taken Comments Blood Pressure 168/86 12/01/2024 7:51 AM EDT Pulse 110 12/01/2024 7:51 AM EDT Temperature 36.4 C (97.6 F) 12/01/2024 7:51 AM EDT Respiratory Rate - - Oxygen Saturation 97% 12/01/2024 7:51 AM EDT Inhaled Oxygen Concentration - - Weight 107 kg (235 lb) 12/01/2024 7:51 AM EDT Height 185.4 cm (6' 1 ) 12/01/2024 7:51 AM EDT Body Mass Index 31 12/01/2024 7:51 AM EDT documented in this encounter Functional Status * Question Answer Date of Assessment Author Over the past 2 weeks, how o ften have you been bothered by feeling little interest or pleasure in doing things? 2 12/01/2024 8:02 AM EDT Divina Hanson MA Over the past 2 weeks, how o ften have you been bothered by feeling down, depressed, or hopeless? 0 12/01/2024 8:02 AM EDT Divina Govea MA PHQ-2 Total Score 2 12/01/2024 8:02 AM EDT Divina Hanson MA * PHQ-2 Total Answer Date of Assessment Author 2 12/01/2024 8:02 AM EDT Divina Hanson MA documented as of this encounter Progress Notes * Radha Mack MD - 12/01/2024 8:00 AM EDT Family Medicine Progress Note Subjective Patient ID: Shabhaz Choe is a 49 y.o. male. Chief Complaint Patient presents with [facility] Diabetes UTI History of present illness: This is a 49-year-old male that was here to [facility]. His A1c today is fairly well-controlledat 6.7. He was just admitted to a long term 2 days ago. Prior to that he had been in psychiatric care for rage, depression and anxiety. He was released on Effexor and Zyprexa. That he refuses to take the Effexor. His blood pressure is elevated and we will go ahead and increase his Toprol to try tohelp compensate that. The patient is stating that she does not think that he is going to be here for very long and that he be moving onto another [facility] house. He states this is basically how he survives going from program to program. He does take Valium and he states that his primary care doctor is doing that. That he had to see me today because he is having trouble in his feet. We discussed plantar fasciitis and how to treat he will get a good pair of support shoes and a prescription for insoles were given we will also get his some anti- inflammatories he stated that diclofenac worked much better for him. He would like a prescription of that. He did have stents placed last March and hedid follow-up with his hims coder the following month but has not since then. He states that he had 2 episodes of passing out about a month ago in the same week and he is not sure why we discussed just getting him to follow-up with cardiology given the very difficult to come up with a source or reason for something that happened over a month ago. He is states he has probably exertion and that he probably should not do any strenuous work [place] the [place] he is living alone. He does require some refills today and we will refill those that are necessary. He does state that he does have some blood in his urine but he does have that with some protein that there is no sign of infection and will get that to the workup The following portions of the chart were reviewed this encounter and updated as appropriate: Tobacco Allergies Meds Problems Med Hx Surg Hx Fam Hx Visit Vitals BP (!) 168/86 Pulse 110 Temp 97.6 ??F (36.4 ??C) Ht 6' 1 (1.854 m) Wt 235 lb (107 kg) SpO2 97% BMI 31.00 kg/m?? Smoking Status Every Day BSA 2.35 m?? Current Medications[1] Allergies[2] Review of Systems Constitutional: Positive for fatigue. Negative for chills and fever. HENT: Negative. Respiratory: Negative for chest tightness and shortness of breath. Cardiovascular: Negative for chest pain and leg swelling. Gastrointestinal: Negative. Genitourinary: Positive for hematuria. Musculoskeletal: Positive for arthralgias, back pain and myalgias. Neurological: Positive for dizziness, syncope and weakness. Psychiatric/Behavioral: Positive for agitation, behavioral problems, decreased concentration, dysphoric mood and sleep disturbance. Negative for hallucinations and self-injury. The patient is not nervous/anxious and is not hyperactive. Objective Physical Exam Vitals reviewed. Constitutional: Appearance: Normal appearance. HENT: Head: Normocephalic. Right Ear: Tympanic membrane normal. Left Ear: Tympanic membrane normal. Nose: Nose normal. Mouth/Throat: Mouth: Mucous membranes are moist. Eyes: Conjunctiva/sclera: Conjunctivae normal. Cardiovascular: Rate and Rhythm: Normal rate and regular rhythm. Heart sounds: Normal heart sounds. Pulmonary: Effort: Pulmonary effort is normal. Breath sounds: Normal breath sounds. Abdominal: General: Bowel sounds are normal. Musculoskeletal: General: Normal range of motion. Cervical back: Normal range of motion. Comments: Mild changes of osteoarthritis; bilateral feet with plantar fasciitis and point tenderness at the heel with also pain at bilateral great toes consistent with arthritis Skin: General: Skin is warm and dry. Neurological: General: No focal deficit present. Mental Status: He is alert. Mental status is at baseline. Sensory: No sensory deficit. Coordination: Coordination normal. Assessment/Plan The primary encounter diagnosis was Routine general medical examination at a health care facility. Diagnoses of Dysuria, Type 2 diabetes mellitus without complication, Coronary arteriosclerosis, not otherwise specified, Syncope, Bilateral plantar fasciitis, Generalized anxiety disorder, Bipolar I disorder, most recent episode depression, Hepatitis C screening, Screening for cardiovascular condition, Body mass index (BMI) 31.0-31.9, adult, Hypertension, Encounter for therapeutic drug monitoring,Hematuria, not otherwise specified, and Proteinuria, not otherwise specified were also pertinent tothis visit. Return to clinic pending results Radha Mack MD [facility] [1] Current Outpatient Medications Medication Sig Dispense Refill acetaminophen (Tylenol) 325 MG tablet amitriptyline (Elavil) 25 MG tablet amLODIPine-benazepril (Lotrel) 10-40 MG capsule Aspirin EC Adult Low Dose 81 MG EC tablet atorvastatin (Lipitor) 80 MG tablet hydrOXYzine pamoate (Vistaril) 25 MG capsule ibuprofen 400 MG tablet metFORMIN (Glucophage) 500 MG tablet sildenafil (Revatio) 20 MG tablet Take 20 mg by mouth if needed. spironolactone (Aldactone) 25 MG tablet tadalafil (Cialis) 5 MG tablet Take 5 mg by mouth in the morning. tamsulosin (Flomax) 0.4 MG 24 hr capsule venlafaxine XR (Effexor-XR) 75 MG 24 hr capsule metoprolol succinate XL (Toprol-XL) 100 MG 24 hr tablet Take 1 tablet by mouth in the morning. Do not crush or chew. 90 tablet 1 No current facility-administered medications for this visit. [2] No Known Allergies documented in this encounter Plan of Treatment Upcoming Encounters Date Type Department Care Team (Late st Contact Info) Description 06/08/2025 10:00 AM EST Office Visit [facility] [address] [place] [address] Bindu Brady MD [address] [place] [address], [address] [place] [address] Scheduled Orders Name Type Priority Associated Diagnoses Orde r Schedule US renal complete Imaging Routine Hematuria, not otherwise specified Expected: 12/01/2024, Expires: 12/01/2025 Scheduled Referrals Name Type Priority Associated Diagnoses Order Schedule Cardiology referral Outpatient Referral Routine Type 2 diabetes mellitus without complication Coronary arteriosclerosis, not otherwise specified Ordered: 12/01/2024 documented as of this encounter Procedures Procedure Name Priority Date/Time Associated Diagnosis Comments POCT URINE TOXICOLOGY SCREEN Routine 12/01/2024 8:57 AM EDT Routine general medical examination at a health care facility Dysuria Type 2 diabetes mellitus without complication Coronary arteriosclerosis, not otherwise specified Syncope Bilateral plantar fasciitis Generalized anxiety disorder Bipolar I disorder, most recent episode depression Hepatitis C screening Screening for cardiovascular condition Body mass index (BMI) 31.0-31.9, adult Hypertension Encounter for therapeutic drug monitoring POCT URINALYSIS DIPSTICK Routine 12/01/2024 8:57 AM EDT Dysuria HEPATITIS C ANTIBODY Routine 12/01/2024 8:40 AM EDT Routine general medical examination at a health care facility Dysuria Type 2 diabetes mellitus without complication Coronary arteriosclerosis, not otherwise specified Syncope Bilateral plantar fasciitis Generalized anxiety disorder Bipolar I disorder, most recent episode depression Hepatitis C screening Screening for cardiovascular condition Body mass index (BMI) 31.0-31.9, adult Hypertension Encounter for therapeutic drug monitoring CBC AND DIFFERENTIAL Routine 12/01/2024 8:40 AM EDT Routine general medical examination at a health care facility Dysuria Type 2 diabetes mellitus without complication Coronary arteriosclerosis, not otherwise specified Syncope Bilateral plantar fasciitis Generalized anxiety disorder Bipolar I disorder, most recent episode depression Hepatitis C screening Screening for cardiovascular condition Body mass index (BMI) 31.0-31.9, adult Hypertension Encounter for therapeutic drug monitoring TSH Routine 12/01/2024 8:40 AM EDT Routine general medical examination at a health care facility Dysuria Type 2 diabetes mellitus without complication Coronary arteriosclerosis, not otherwise specified Syncope Bilateral plantar fasciitis Generalized anxiety disorder Bipolar I disorder, most recent episode depression Hepatitis C screening Screening for cardiovascular condition Body mass index (BMI) 31.0-31.9, adult Hypertension Encounter for therapeutic drug monitoring TESTOSTERONE, TOTAL, MALES Routine 12/01/2024 8:40 AM EDT Routine general medical examination at a health care facility Dysuria Type 2 diabetes mellitus without complication Coronary arteriosclerosis, not otherwise specified Syncope Bilateral plantar fasciitis Generalized anxiety disorder Bipolar I disorder, most recent episode depression Hepatitis C screening Screening for cardiovascular condition Body mass index (BMI) 31.0-31.9, adult Hypertension Encounter for therapeutic drug monitoring MAGNESIUM Routine 12/01/2024 8:40 AM EDT Routine general medical examination at a health care facility Dysuria Type 2 diabetes mellitus without complication Coronary arteriosclerosis, not otherwise specified Syncope Bilateral plantar fasciitis Generalized anxiety disorder Bipolar I disorder, most recent episode depression Hepatitis C screening Screening for cardiovascular condition Body mass index (BMI) 31.0-31.9, adult Hypertension Encounter for therapeutic drug monitoring LIPID PANEL Routine 12/01/2024 8:40 AM EDT Routine general medical examination at a health care facility Dysuria Type 2 diabetes mellitus without complication Coronary arteriosclerosis, not otherwise specified Syncope Bilateral plantar fasciitis Generalized anxiety disorder Bipolar I disorder, most recent episode depression Hepatitis C screening Screening for cardiovascular condition Body mass index (BMI) 31.0-31.9, adult Hypertension Encounter for therapeutic drug monitoring CMP COMPREHENSIVE METABOLIC PANEL Routine 12/01/2024 8:40 AM EDT Routine general medical examination at a health care facility Dysuria Type 2 diabetes mellitus without complication Coronary arteriosclerosis, not otherwise specified Syncope Bilateral plantar fasciitis Generalized anxiety disorder Bipolar I disorder, most recent episode depression Hepatitis C screening Screening for cardiovascular condition Body mass index (BMI) 31.0-31.9, adult Hypertension Encounter for therapeutic drug monitoring POC HA1C Routine 12/01/2024 8:28 AM EDT Type 2 diabetes mellitus without complication documented in this encounter Results * (ABNORMAL) POCT URINE TOXICOLOGY SCREEN (12/01/2024 8:57 AM EDT) THC/DEVANTE Positive(A) Negative MOP Negative Negative MET Gene Negative Negative AMP Negative Negative BZO Positive(A) Negative BAR Negative Negative MTD Negative Negative MDMA Negative Negative OXY Negative Negative BUP Negative Negative OPI Negative Negative Urine 12/01/2024 8:57 AM EDT Radha Mack MD POINT OF CARE TEST ENTER/EDIT ORDERABLES Final Result * (ABNORMAL) POCT Urinalysis dipstick (12/01/2024 8:57 AM EDT) Pathologist [facility] Glucose, UA Negative Negative, Not Found Bilirubin, UA Negative Negative Ketones, Urine Negative other, Negative mg/dL Specific [place], Urine >=1.030(A) 1.010, 1.015, 1.020, 1.025 BLOOD, POC other(A) Negative Comment:Large pH, UA 5.5 5.0 - 8.0 Protein, UA other(A) Negative Comment:>=300 mg/dL Urobilinogen, UA 0.2 Nitrite, UA Negative Negative Leukocytes, UA Negative Negative Urine 12/01/2024 8:57 AM EDT Radha Mack MD POINT OF CARE TEST ENTER/EDIT ORDERABLES Final Result * Hepatitis C antibody (12/01/2024 8:40 AM EDT) Pathologist [facility] HEPATITIS C ANTIBODY (REFL) NON-REACT KALYN NON-REACT KALYN [facility] Comment: HCV antibody was non-reactive. There is no laboratory evidence of HCV infection. In most cases, no further action is required. However, if recent HCV exposure is suspected, a test for HCV RNA (test code 46382) is suggested. For additional information please refer to http://education.Plerts/faq/SVV81g6 (This link is being provided for informational/ educational purposes only.) Our records indicate that you have ordered a client custom reflex order code. Only the initial test was performed because we do not have a client custom reflex testing authorization request form on file for you. Please contact a client server programmer if you would like additional testing done on this patient or contact your manager of tires sales to obtain a client custom reflex testing authorization request form. Blood Venous blood specimen / Unknown 12/01/2024 8:40 AM EDT 12/01/2024 2:37 PM EDT Narrative [facility] - 12/02/2024 2:12 PM EDT FASTING:NO FASTING: NO Resulting Agency Comment Performing Organization Information: Site ID: [id number] Name: [employer] Address: [address] [place] [phone] Director: Dimitri Thompson Radha Mack MD LAB BLOOD ORDERABLES Final Re sult Performing Organization Address City/[facility]/ZIP Co de Phone Number [address] [place] [address], * Magnesium (12/01/2024 8:40 AM EDT) Magnesium 2.1 1.5 - 2.5 mg/dL [facility] Blood Venous blood specimen / Unknown 12/01/2024 8:40 AM EDT 12/01/2024 2:37 PM EDT Narrative [facility] - 12/02/2024 2:12 PM EDT FASTING:NO FASTING: NO Resulting Agency Comment Performing Organization Information: Site ID: Name: [employer] Address: [address] [place] [phone] Director: Dimitri Thompson us Radha Mack MD LAB BLOOD ORDERABLES Final Re sult Performing Organization Address [facility] Co de Phone Number [address] [address], [place] * Testosterone, Total, Males (12/01/2024 8:40 AM EDT) Testosterone 359 250 - 827 ng/dL [facility] Blood Venous blood specimen / Unknown 12/01/2024 8:40 AM EDT 12/01/2024 2:37 PM EDT Narrative [facility] - 12/02/2024 2:12 PM EDT FASTING:NO FASTING: NO Resulting Agency Comment Performing Organization Information: Site ID: [id number] Name: [employer] Address: [address] [place] [phone] Director: Dimitri Thompson Radha Mack MD LAB BLOOD ORDERABLES Final Re sult Performing Organization Address City/[facility]/ZIP Co de Phone Number [address] [address], [place] * TSH (12/01/2024 8:40 AM EDT) Pathologist [facility] TSH 4.08 0.40 - 4.50 mIU/L [facility] Blood Venous blood specimen / Unknown 12/01/2024 8:40 AM EDT 12/01/2024 2:37 PM EDT Narrative [facility] - 12/02/2024 2:12 PM EDT FASTING:NO FASTING: NO Resulting Agency Comment Performing Organization Information: Site ID: [id number] Name: [email or web address] Address: [address] [place] [phone] Director: Dimitri Thompson us Radha Mack MD LAB BLOOD ORDERABLES Final Re sult Performing Organization Address [facility] de Phone Number [address] [address], * (ABNORMAL) Lipid panel (12/01/2024 8:40 AM EDT) [facility] TRIGLYCERIDES 506(H) <=149 mg/dL [facility] CHOLESTEROL, TOTAL 170 <=199 mg/dL [facility] HDL CHOLESTEROL 32(L) 40 - 60 mg/dL [facility] LDL-CHOLESTEROL 37 <=130 mg/dL [facility] CHOL/HDLC RATIO 5.31(H) 0.00 - 4.99 Ratio [facility] CHOLESTEROL VLDL CALCULATION 101 mg/dL [facility] LDL/HDL RATIO 1.16 Ratio [facility] Blood Venous blood specimen / Unknown 12/01/2024 8:40 AM EDT 12/01/2024 2:37 PM EDT Narrative [facility] - 12/02/2024 2:12 PM EDT FASTING:NO FASTING: NO Resulting Agency Comment Performing Organization Information: Site ID: [email or web address] Name: [facility] Address: [address] [place] [phone] Director: Dr. Parmjit Deleon us Radha Mack MD LAB BLOOD ORDERABLES Final Re sult Performing Organization Address [facility] de Phone Number [address] [address], * (ABNORMAL) Comprehensive metabolic panel (12/01/2024 8:40 AM EDT) GLUCOSE 168(H) 74 - 109 mg/dL [facility] UREA NITROGEN (BUN) 31(H) 7 - 25 mg/dL [facility] CREATININE 1.76(H) 0.70 - 1.30 mg/dL [facility] BUN/CREATININE RATIO 17.6 6.0 - 22.0 [facility] SODIUM 135(L) 136 - 145 mmol/L [facility] POTASSIUM 4.8 3.5 - 5.1 mmol/L [facility] CHLORIDE 107 98 - 110 mmol/L [facility] CARBON DIOXIDE 15(L) 21 - 31 mmol/L [facility] CALCIUM 9.9 8.6 - 10.2 mg/dL [facility] PROTEIN, TOTAL 7.0 6.4 - 8.9 Gram/dL [facility] ALBUMIN 4.0 3.5 - 5.2 Gram/dL [facility] GLOBULIN 3.0 2.0 - 3.5 Gram/dL [facility] A/G Ratio 1.3 1.0 - 2.5 [facility] BILIRUBIN, TOTAL 0.3 0.3 - 1.0 mg/dL [facility] ALKALINE PHOSPHATASE 140(H) 34 - 104 Units/Lite r [facility] AST 23 13 - 39 Units/Lite r [facility] ALT 20 <=32 Units/Lite r [facility] EGFR 46(L) >=60 mL/min/1.7 3m2 [facility] Comment: eGFR calculation performed using the CKD-EPI 2020 equation (race variable excluded) Blood Venous blood specimen / Unknown 12/01/2024 8:40 AM EDT 12/01/2024 2:37 PM EDT Narrative [facility] - 12/02/2024 2:12 PM EDT FASTING:NO FASTING: NO Resulting Agency Comment Performing Organization Information: Site ID: [email or web address] Name: [facility] Address: [address] [place] [phone] Director: Dr. Parmjit Deleno us Radha Mack MD LAB BLOOD ORDERABLES Final Re sult [facility] [address] [place] [address], * (ABNORMAL) CBC With Differential (12/01/2024 8:40 AM EDT) WHITE BLOOD CELL COUNT 13.5(H) 3.8 - 10.8 K/uL [facility] RED BLOOD CELL COUNT 4.2 4.2 - 5.8 x10(6)/uL [facility] HEMOGLOBIN 13.0 13.0 - 17.5 ZZ [facility] HEMATOCRIT 38.9 38.0 - 51.0 % [facility] MCV 93.7 79.4 - 94.8 pg [facility] MCH 31.4 25.6 - 32.2 pg [facility] MCHC 33.5 32.3 - 36.5 Gram/dL [facility] RDW 15.9(H) 11.0 - 15.0 % [facility] PLATELET COUNT 367 140 - 420 x10(3)/uL [facility] MPV 8.7 6.5 - 12.0 fL [facility] NEUTROPHILS 58.2 34.0 - 75.0 % [facility] ABSOLUTE NEUTROPHILS 7.9(H) 1.5 - 7.1 x10(3)/uL [facility] LYMPHOCYTES 27.1 17.0 - 53.0 % [facility] ABSOLUTE LYMPHOCYTES 3.7(H) 1.0 - 3.5 x10(3)/uL [facility] MONOCYTES 8.0 2.0 - 12.0 % [facility] ABSOLUTE MONOCYTES 1.1(H) 0.0 - 1.0 x10(3)/uL [facility] EOSINOPHILS 5.5 0.0 - 7.0 % [facility] ABSOLUTE EOSINOPHILS 0.7 0.0 - 0.7 x10(3)/uL [facility] BASOPHILS 1.2 0.0 - 3.0 % [facility] ABSOLUTE BASOPHILS 0.2 0.0 - 3.0 x10(3)/uL [facility] NRBC 0 [facility] Blood Venous blood specimen / Unknown 12/01/2024 8:40 AM EDT 12/01/2024 2:37 PM EDT Narrative [facility] - 12/02/2024 2:12 PM EDT FASTING:NO FASTING: NO Resulting Agency Comment Performing Organization Information: Site ID: [email or web address] Name: [facility] Address: [address] [place] [phone] Director: Dr. Parmjit Deleon us Radha Mack MD LAB BLOOD ORDERABLES Final Re sult [facility] [address] [place] [address], * (ABNORMAL) POCT HEMOGLOBIN A1C (12/01/2024 8:28 AM EDT) POC HGB A1C 6.7(A) <=5.6 % Blood 12/01/2024 8:28 AM EDT Radha Mack MD POINT OF CARE TEST ENTER/EDIT ORDERABLES Final Result documented in this encounter Visit Diagnoses Diagnosis Routine general medical examination at a health care facility- Primary Dysuria Type 2 diabetes mellitus without complication Coronary arteriosclerosis, not otherwise specified Syncope Bilateral plantar fasciitis Generalized anxiety disorder Bipolar I disorder, most recent episode depression Hepatitis C screening Screening for cardiovascular condition Body mass index (BMI) 31.0-31.9, adult Hypertension Encounter for therapeutic drug monitoring Hematuria, not otherwise specified Proteinuria, not otherwise specified documented in this encounter Care Teams Lens Finisher Relationship Specialty Start Date End Date Radha Mack MD [address] [place] [address] PCP - General Family Medicine 11/29/24 documented as of this encounter
[2025-01-17 16:32] LABS: Hematocrit 34.2 % (42.0-52.0); Hemoglobin 11.1 g/dL (14.1-18.0); Immature Granulocytes % 0.5 %; Mean Corpuscular HGB Conc 32.5 g/dL (31.8-35.4); Mean Corpuscular Hemoglobin 31.4 pg (27.0-31.2); Mean Corpuscular Volume 96.6 fl (80-94); Nucleated Red Blood Cells % 0 %; Platelet Count 343 K/mm3 (142-424); Red Blood Count 3.54 M/mm3 (4.60-6.20); Red Cell Distribution Width-SD 47.8 fL; White Blood Count 10.3 K/mm3 (4.8-10.8)
[2025-01-17 17:32] LABS: Alanine Aminotransferase 17 U/L (12-78); Albumin Level 3.8 g/dl (3.5-5.0); Albumin/Globulin Ratio 1.5 (1.1-1.8); Alkaline Phosphatase 153 U/L (38-126); Anion Gap 15.4 mEq/L (5-15); Aspartate Amino Transferase 21 U/L (17-59); Bilirubin,Total 0.4 mg/dl (0.2-1.3); Blood Urea Nitrogen 24 mg/dl (9-20); Calcium 9.4 mg/dl (8.4-10.2); Carbon Dioxide 22 mmol/L (22.0-30.0); Chloride 105 mmol/L (98-107); Creatinine,Serum 2.10 mg/dl (0.66-1.25); Estimated Glomerular Filt Rate 33 ml/min (>60); GFR (African American) 40 ML/MIN (>60); Globulin 2.6 g/dL (1.3-3.2); Glucose 69 mg/dl (74-100); Potassium 5.4 mmoL/L (3.5-5.1); Sodium 137 mmol/L (136-145); Total Protein,Serum 6.4 g/dl (6.3-8.2)
--- OUTSIDE RECORDS SUMMARY | 2025-01-17 23:11 | XMS_ITS | Encounter Summary ---
Author Organization [facility] Address [address] [place] [address] Care Team Providers Care Sound Effects Technician Name Role Phone Radha Mack MD Primary Care Provider [phone] Encounter Details Date Type Department Care Team (Late st Contact Info) Description 01/02/2025 Telephone [facility] - Primary Care [address] [place] [address] Radha Mack MD [address] [place] [address] Social History Tobacco Use Types Packs/Day Years Used Date Smoking Tobacco: Every Day Cigarettes Smokeless Tobacco: Never Alcohol Use Standard Drinks/Week Comments Not Currently 0 (1 standard drink = 0.6 oz pur e alcohol) [facility] Utilities Answer Date Recorded In the past 12 months has th e electric, gas, oil, or water company threatened to shut off services in your [...] any time in the past 12 m [facility], were you homeless or living in a intermediate (including now)? Yes 12/01/2024 Depression Answer Date Recorded PHQ-2 Total Score 2 12/01/2024 Interpersonal Safety Answer Date Record ed How often does anyone, ryan travis family and friends, physically hurt you? Never 12/01/2024 How often does anyone, janelsharon angy family and friends, threaten you with harm? Never 12/01/2024 Sex and Gender Information Value Date Recorded Sex Assigned at Not on file Legal Sex Male 3:31 PM EDT Gender Identity Not on file Sexual Orientation Not on file documented as of this encounter Miscellaneous Notes * Telephone Encounter - Divina Hanson MA - 01/02/2025 11:19 AM EDT Faxed * Telephone Encounter - Rhea Concepcion - 01/02/2025 10:25 AM EDT Patient called requesting that his labs showing that he has a severe case of kidney disease, He is asking for the information be fax to [facility] - fax [phone] attention: Shahbaz Choe. He is leaving the facility tomorrow and would like this information today. He is asking for this information so he can gain resource. For more information please call the patient at [phone]. Thank you. documented in this encounter Plan of Treatment Upcoming Encounters Date Type Department Care Team (Late st Contact Info) Description 06/08/2025 10:00 AM EST Office Visit [facility] [address] [place] [address] [address] [place] [address] Bindu Brady MD [address] [place], [place] [id number] [place] [address] documented as of this encounter Visit Diagnoses Not on filedocumented in this encounter Care Teams Sound Effects Technician Relationship Specialty Start Date End Date Radha Mack MD [address] [place] [address] PCP - General Family Medicine 11/29/24 documented as of this encounter
--- OUTSIDE RECORDS SUMMARY | 2025-01-17 23:11 | XMS_ITS | Encounter Summary ---
Author Organization [facility] Address [address] [place] [address] Care Team Providers Care Loss Prevention Coordinator Name Role Phone Radha Mack MD Primary Care Provider Reason for Referral * Consultation (Routine) - Closed Specialty Diagnoses / Procedures Referred By Contac t Referred To Contact Diagnoses Type 2 diabetes mellitus with diabetic nephropathy Radha Mack MD [address] [place] [address] Phone: tel: fax: Mary Carmen Cowart MD [address] [place] [address] Phone: tel: fax: Referral ID Status Reason Start Date Expiration Date V isits Requested Visits Authorized [id number] Closed Specialty Services Required 12/02/2024 01/01/2026 1 1 Encounter Details Date Type Department Care Team (Late st Contact Info) Description 12/02/2024 [facility] [address] [place] [address] Radha Mack MD [address] [place] [address] POCT HEMOGLOBIN A1C, POCT Urinalysis dipstick, CBC With Differential, Additional followed-up results: 6 Social History Tobacco Use Types Packs/Day Years Used Date Smoking Tobacco: Every Day Cigarettes Smokeless Tobacco: Never Alcohol Use Standard Drinks/Week Comments Not Currently 0 (1 standard drink = 0.6 oz pur e alcohol) [facility] Utilities Answer Date Recorded In the past [...] any time in the past 12 m [facility], were you homeless or living in a chcf (including now)? Yes 12/01/2024 Depression Answer Date Recorded PHQ-2 Total Score 2 12/01/2024 Interpersonal Safety Answer Date Record ed How often does anyone, inclu angy family and friends, physically hurt you? Never 12/01/2024 How often does anyone, inclu angy family and friends, threaten you with harm? Never 12/01/2024 Sex and Gender Information Value Date Recorded Sex Assigned at Not on file Legal Sex Male 3:31 PM EDT Gender Identity Not on file Sexual Orientation Not on file documented as of this encounter Miscellaneous Notes * Result Encounter Note - Divina Hanson MA - 12/02/2024 1:14 PM EDT Spk w/pt made him aware of lab results and medication changes, pt v/u. documented in this encounter Plan of Treatment Upcoming Encounters Date Type Department Care Team (Late st Contact Info) Description 06/08/2025 10:00 AM EST Office Visit [facility] [address] [place] [address] Bindu Brady MD [address] [place] [phone] Scheduled Referrals Name Type Priority Associated Diagnoses Orde r Schedule Nephrology referral Outpatient Referral Routine Type 2 diabetes mellitus with diabetic nephropathy Ordered: 12/02/2024 documented as of this encounter Visit Diagnoses Diagnosis Bilateral plantar fasciitis- Primary Hypertriglyceridemia Type 2 diabetes mellitus with diabetic nephropathy documented in this encounter Care Teams Loss Prevention Coordinator Relationship Specialty Start Date End Date Radha Mack MD [address] [place] [address] PCP - General Family Medicine 11/29/24 documented as of this encounter
--- OUTSIDE RECORDS SUMMARY | 2025-01-17 23:11 | XMS_ITS | Encounter Summary ---
Author Organization [facility] Address [address] [place] [address] Care Team Providers Care Technical Spec Name Role Phone Radha Mack MD Primary Care Provider [phone] Encounter Details Date Type Department Care Team (Latest Contact Info) Description 12/01/2024 Travel Social History Tobacco Use Types Packs/Day Years Used Date Smoking Tobacco: Every Day Cigarettes Smokeless Tobacco: Never Alcohol Use Standard Drinks/Week Comments Not Currently 0 (1 standard drink = 0.6 oz pur e alcohol) [facility] Utilities Answer Date Recorded In the past 12 months has th e electric, gas, oil, or water [employer] threatened to shut off services in your [...] any time in the past 12 m [facility], were you homeless or living in a longterm (including now)? Yes 12/01/2024 Depression Answer Date [...] on file documented as of this encounter Functional Status * Question Answer [...] Hanson MA documented as of this encounter Plan of Treatment Upcoming Encounters Date Type Department Care Team (Late st Contact Info) Description 06/08/2025 10:00 AM EST Office Visit [facility] [address] [place] [address] Bindu Brady MD [address] [place] [address], [address] [place] [address] documented as of this encounter Visit Diagnoses Not on filedocumented in this encounter Care Teams Technical Spec Relationship Specialty Start Date End Date Radha Mack MD [address] [place] [address] PCP - General Family Medicine 11/29/24 documented as of this encounter
--- OUTSIDE RECORDS SUMMARY | 2025-01-17 23:12 | XMS_ITS | Clinical Summary ---
Author Organization [facility] Address [address] [place] [address] Phone Care Team Providers Care Monitoring Engineer Name Role Phone Unavailable Primary Care Provider Unavailabl e Allergies No known active allergies Medications * This document contains information received from the source organization and may not represent a complete record from that organization. No known medications Active Problems Problem Noted Date Diagnosed Date Alcoholic intoxication without complication 06/11 Alcohol intoxication, uncomplicated 06/30/2023 Suicide gesture, initial encounter 06/30/2023 Substance induced mood disorder 06/30/2023 Tobacco dependence 10/01/2018 Alcohol use disorder, severe, dependence 013 Opiate abuse, episodic 08/26/2012 Cigarette smoker 08/26/2012 Hypertension 08/26/2012 Marijuana dependence 08/26/2012 Dental caries 08/26/2012 Resolved Problems Problem Noted Date Diagnosed Date Resolved Date Mood disorder 06/30/2023 11/04/2024 Mood disorder 09/29/2018 11/04/2024 Alcohol dependence 08/26/2012 3 Marijuana abuse 08/26/2012 09/29/2018 Addiction, marijuana 08/26/2012 025 Anxiety 11/04/2024 Panic attacks 08/26/2012 Bipolar 2 disorder 9 Tobacco abuse 08/26/2012 Encounters * This document contains information received from the source organization and may not represent a complete record from that organization. Date Type Department Care Team Description 11/09/2024 External Contact [facility] [address] [place] [address] Gen Miller MD Type 2 diabetes mellitus with hyperglycemia, without long-term current use of insulin (HCC) [E11.65] (Primary Dx); Osteoarthritis of multiple joints, unspecified osteoarthritis type [M15.9]; Traumatic ecchymosis of left upper arm, subsequent encounter [S40.022D] 11/08/2024 External Contact [facility] [place] [address] Gen Miller MD Type 2 diabetes mellitus with hyperglycemia, without long-term current use of insulin (HCC) [E11.65] (Primary Dx); Mixed hyperlipidemia [E78.2]; Traumatic ecchymosis of left upper arm, initial encounter [S40.022A]; Osteoarthritis of multiple joints, unspecified osteoarthritis type [M15.9] 11/04/2024 External Contact [facility] [address] [place] [address] Gen Miller MD Overweight (BMI 25.0-29.9) [E66.3] (Primary Dx); Type 2 diabetes mellitus without complication, without long-term current use of insulin (HCC) [E11.9]; Mixed hyperlipidemia [E78.2]; Benign prostatic hyperplasia with lower urinary tract symptoms, symptom details unspecified [N40.1]; Primary hypertension [I10]; Medical clearance for psychiatric admission [Z00.8] from Last 3 Months Immunizations Immunization Administration Dates Next Due Tdap 06/30/2023,01/01/2010 Surgical History Surgery Date Site/Laterality Comments CYST REMOVAL 1999 removed from neck FOOT SURGERY 1988 FRACTURE SURGERY ORTHOPEDIC SURGERY Medical History Medical History Date Comments Bipolar 2 disorder (HCC[facility] Anxiety Depression Hypertension Marijuana abuse 08/26/2012 Family History Medical History Relation Name Comments Substance Abuse Brother 1 Substance Abuse Father Substance Abuse Mother Heart Attack Other High Blood Pressure Other Mental Illness Other Stroke Other Relation Name Status Comments Brother 1 Father Alive Mother Alive Other Social History Tobacco Use Types Packs/Day Years Used Date Smoking Tobacco: Every Day Cigarettes Passive Smoke Exposure: Never Tobacco Cessation:Ready to Q uit: Not Asked; Counseling Given: Not Answered Alcohol Use Standard Drinks/Week Comments Yes 24 (1 standard drink = 0.6 oz pu re alcohol) whiskey qod, fith daily [facility] Utilities Answer Date Recorded In the past 12 months has th e electric, gas, oil, or water company threatened to shut off services in your home? No 06/30/2023 Overall Financial Resource Strain (CARDIA) Answe r Date Recorded How hard is it for you to pa y for the very basics like food, housing, medical care, and heating? Very hard 06/30/2023 PHQ-2 Answer Date Recorded PHQ-2 Total Score 4 06/30/2023 [facility] - Occupational Stress Questionnaire Answer Date Recorded Do you feel stress - tense, restless, nervous, or anxious, or unable to sleep at night because your mind is troubled all the time - these days? Very much 06/30/2023 Exercise Vital Sign Answer Date Recorde d On average, how many days pe r week do you engage in moderate to strenuous exercise (like a brisk walk)? Patient declined On average, how many minutes do you engage in exercise at this level? Patient declined 06/30/2023 Hunger Vital Sign Answer Date Recorded Within the past 12 months, y ou worried that your food would run out before you got the money to buy more. Often true 06/30/19 24 Within the past 12 months, t he food you bought just didn't last and you didn't have money to get more. Often true 06/30/2023 [facility] Transportation Answer D ate Recorded In the past 12 months, has l ack of reliable transportation kept you from medical appointments, meetings, work or from getting things needed for daily living? Yes 06/30/2023 Sex and Gender Information Value Date Recorded Sex Assigned at Not on file Legal Sex Male 3:22 PM EDT Gender Identity Not on file Sexual Orientation Not on file Last Filed Vital Signs Vital Sign Reading Time Taken Comments Blood Pressure 131/83 06/30/2023 5:00 PM EDT Pulse 84 06/30/2023 5:00 PM EDT Temperature 36.8 C (98.2 F) 06/30/2023 4:30 PM EDT Respiratory Rate 0 06/30/2023 5:00 PM EDT Oxygen Saturation 98% 06/30/2023 4:30 PM EDT Inhaled Oxygen Concentration - - Weight 95.9 kg (211 lb 6.7 oz) 06/30/2023 6:00 A M EDT Height 185.4 cm (6' 1 ) 06/30/2023 4:19 AM EDT Body Mass Index 27.89 06/30/2023 4:19 AM EDT Plan of Treatment Health Maintenance Due Date Last Done Comments Annual Wellness Exam 1976 Hepatitis B Vaccine (1 of 3 - 19+ 3-dose series) 1992 Pneumococcal Vaccine 50+ (1 of 2 - PCV) 1992 Cologuard 2018 Colon Cancer Screening 2018 Colonoscopy 2018 FIT 2018 Sigmoidoscopy 2018 Virtual Colonography 2018 Zoster (1 of 2) 11/16/2023 COVID-19 Vaccine (1 - 2023-2 5 season) 2024 Influenza Vaccine (#1) 2024 DTaP/TDaP/Td (3 - Td or Tdap) 06/29/2033, 01/01/2010 Meningococcal B Vaccine Aged Out No l onger eligible based on patient's age to complete this topic Insurance * Guarantor: MAILE WILD Account Type Relation to Patient Date of Phone Billing Address [facility] Personal Family Account 07/19/[address] [facility] [employer] [facility] Advance Directives For more information, please contact: [phone] * Full Code (Latest Code Status on File) Date Activated Date Inactivated Comments 06/30/2023 4:18 AM 06/30/2023 10:11 PM
--- OUTSIDE RECORDS SUMMARY | 2025-01-17 23:12 | XMS_ITS | Clinical Summary ---
Author Organization [facility] ([place], [place], [place], [place]) Address [address] [place] [address] Care Team Providers Care Rehab Trainer Name Role Phone Unavailable Primary Care Provider Unavailabl e Allergies No known active allergies Medications ipratropium-al buteroL (DUO-NEB) 0.5 mg-3 mg(2.5 mg base)/3 mL nebulizer solution Take 3 mLs by nebulization every 6 (six) hours as needed for wheezing for up to 360 days. 3 mL 4 01/04/20 25 Active Problems No known active problems Social History Tobacco Use Types Packs/Day Years Used Date Smoking Tobacco: Never Assessed Family and Community Support Answer Andres e Recorded Help with Day to Day Activities Not on file 01/08/2024 Feeling Lonely or Isolated Not on file 01/07 Educational Attainment Answer Date Sebastian rded Speak language other than Kazakh at home Not on file 01/08/2024 Want help with school or training Not on file 01/08/2024 Substance Use Answer Date Recorded Used prescription meds for non-medical reasons N ot on file 01/08/2024 Used illegal drugs past 12 months Not on file 01/08/2024 Sex and Gender Information Value Date Recorded Sex Assigned at Male 01/08/2024 4:00 PM CDT Legal Sex Male 2:53 PM CDT Gender Identity Not on file Sexual Orientation Not on file Last Filed Vital Signs Vital Sign Reading Time Taken Comments Blood Pressure 130/76 01/08/2024 4:32 PM EDT Pulse 80 01/08/2024 4:39 PM EDT Temperature 36.4 C (97.6 F) 01/08/2024 4:06 PM EDT Respiratory Rate 18 01/08/2024 4:39 PM EDT Oxygen Saturation 97% 01/08/2024 4:39 PM EDT Inhaled Oxygen Concentration - - Weight 99.8 kg (220 lb) 01/08/2024 4:06 PM EDT Height 185.4 cm (6' 1 ) 01/08/2024 4:06 PM EDT Body Mass Index 29.03 01/08/2024 4:06 PM EDT Plan of Treatment Health Maintenance Due Date Last Done Comments CT Colonography 1973 Colonoscopy 1973 Colorectal Cancer Screening 1973 FOBT/FIT 1973 Fit-DNA (Cologuard) 1973 Sigmoidoscopy 1973 Depression Screening (12+) 1985 Tobacco Cessation Counseling and Screening (12+) 1985 HIV Screening 1988 Hepatitis C Screening 11/16/1991 Pneumococcal 50+ years (1 of 2 - PCV) 1992 Lipid Panel 2008 Shingles Vaccine (Zoster) (1 of 2) 11/16/2023 COVID-19 VACCINE (1 - season) 2024 Influenza Vaccine (#1) 2024 DTAP/TDAP/TD VACCINES (3 - Td or Tdap) 06/29/2033, 01/01/2010 [facility]
--- OUTSIDE RECORDS SUMMARY | 2025-01-17 23:12 | XMS_ITS | Encounter Summary ---
Author Organization [facility] Address [address] [place] [address] Care Team Providers Care Plaster Maker Name Role Phone Radha Mack MD Primary Care Provider [phone] Encounter Details Date Type Department Care Team (Late st Contact Info) Description 12/02/2024 Telephone [facility] - Primary Care [address] [place] [address] Radha Mack MD [address] [place] [address] Social History Tobacco Use Types Packs/Day Years Used Date Smoking Tobacco: Every Day Cigarettes Smokeless Tobacco: Never Alcohol Use Standard Drinks/Week Comments Not Currently 0 (1 standard drink = 0.6 oz pur e alcohol) [facility] Utilities Answer Date Recorded In the past [...] any time in the past 12 m [facility], were you homeless or living in a correction (including now)? Yes 12/01/2024 Depression Answer Date Recorded PHQ-2 Total Score 2 12/01/2024 Interpersonal Safety Answer Date Record ed How often does anyone, janelsharon angy family and friends, physically hurt you? [...] encounter Miscellaneous Notes * Telephone Encounter - Radha Mcak MD - 12/02/2024 10:29 AM EDT See labs results * Telephone Encounter - Divina Hanson MA - 12/02/2024 6:51 AM EDT Pt states he thought you were going to send in diclofenac for his arthritis. documented in this encounter Plan of Treatment Upcoming Encounters Date Type Department Care Team (Late st Contact Info) Description 06/08/2025 10:00 AM EST Office Visit [facility] [address] [place] [address] Bindu Brady MD [address] [place] [address], [address] [place] [address] documented as of this encounter Visit Diagnoses Not on filedocumented in this encounter Care Teams Plaster Maker Relationship Specialty Start Date End Date Radha Mack MD [address] [place], [place] [id number] PCP - General Family Medicine 11/29/24 documented as of this encounter
--- OUTSIDE RECORDS SUMMARY | 2025-01-17 23:13 | XMS_ITS | Clinical Summary ---
Author Organization [facility] Address [address] [facility] [address] [place] [address] Care Team Providers Care Mechanical Apprentice Name Role Phone Radha Mack MD Primary Care Provider [phone] Allergies No known active allergies Medications amLODIPine-benaz epril (Lotrel) 10-40 MG capsule 5 Active atorvastatin (Lipitor) 80 MG tablet 5 Active spironolactone (Aldactone) 25 MG tablet 5 Active tadalafil (Cialis) 5 MG tablet Take 5 mg by mouth in the morning. Active hydrOXYzine pamoate (Vistaril) 25 MG capsule 5 Active amitriptyline (Elavil) 25 MG tablet 5 Active venlafaxine XR (Effexor-XR) 75 MG 24 hr capsule 5 Active Aspirin EC Adult Low Dose 81 MG EC tablet 5 Active tamsulosin (Flomax) 0.4 MG 24 hr capsule 5 Active acetaminophen (Tylenol) 325 MG tablet 5 Active ibuprofen 400 MG tablet 5 Active sildenafil (Revatio) 20 MG tablet Take 20 mg by mouth if needed. Active metoprolol succinate XL (Toprol-XL) 100 MG 24 hr tabletIndication s:Hypertension Take 1 tablet by mouth in the morning. Do not crush or chew. 90 tablet 1 5 Active fenofibrate (Tricor) 145 MG tabletIndication s:Hypertriglycer idemia Take 1 tablet by mouth in the morning. 90 tablet 3 5 12/03/19 26 Active Diclofenac Sodium 1 % gelIndications:B ilateral plantar fasciitis Apply 1 g topically in the morning and 1 g in the evening. 350 g 2 5 Active pioglitazone (Actos) 30 MG tabletIndication s:Type 2 diabetes mellitus with diabetic nephropathy Take 1 tablet by mouth in the morning. 90 tablet 3 5 12/03/19 26 Active Active Problems Problem Noted Date Diagnosed Date Bilateral plantar fasciitis 12/02/2024 Encounters Date Type Department Care Team Description 01/02/2025 Telephone [facility] - Primary Care [address] [place] [address] Radha Mack MD 12/02/2024 Results Follow-Up [facility] - Primary Care [address] [place] [address] Radha Mack MD POCT HEMOGLOBIN A1C, POCT Urinalysis dipstick, CBC With Differential, Additional followed-up results: 6 12/02/2024 Telephone [facility] - Primary Care [address] [place] [address] Radha Mack MD 12/01/2024 8:00 AM EDT Office Visit [facility] - Primary Care [address] [place] [address] Radha Mack MD Routine general medical examination at a health [...] not otherwise specified; Proteinuria, not otherwise specified 12/01/2024 Travel from Last 3 Months Family History Medical History Relation Name Comments Heart disease Father Hepatitis Father No Known Problems Maternal Grandfather No Known Problems Maternal Grandmother Bipolar disorder Mother Depression Mother Heart disease Mother Stroke Mother Cancer Paternal Grandfather Cancer Paternal Grandmother Relation Name Status Comments Brother Alive Father Alive Maternal Grandfather Maternal Grandmother Mother Alive Paternal Grandfather Paternal Grandmother Social History Tobacco Use Types Packs/Day Years Used Date Smoking Tobacco: Every Day Cigarettes Smokeless Tobacco: Never Tobacco Cessation:Ready to Q uit: Not Asked; Counseling Given: Not Answered Alcohol Use Standard Drinks/Week Comments Not Currently 0 (1 standard drink = 0.6 oz pur e alcohol) [facility] Utilities Answer Date Recorded In the past [...] any time in the past [address], were you homeless or living in a [facility] (including now)? Yes 12/01/2024 Depression Answer Date Recorded PHQ-2 Total Score 2 12/01/2024 Interpersonal Safety Answer Date Record ed How often does anyone, ryan travis family and friends, physically hurt you? Never 12/01/2024 How often does anyone, inclsharon travis family and friends, threaten you with [...] Mass Index 31 12/01/2024 7:51 AM EDT Plan of Treatment Upcoming Encounters Date Type Department Care Team (Late st Contact Info) Description 06/08/2025 10:00 AM EST Office Visit [facility] - Kid[facility] Disease [facility] [address] [facility] [address] [place] [address] Bindu Brady MD [address] [place] [address], [address] [place] [address] Health Maintenance Due Date Last Done Comments CT Colonography 1973 Colonoscopy 1973 Colorectal Cancer Screening 1973 FIT-DNA (Cologuard) 1973 FIT 1973 FOBT 1973 HIV Screening 1973 Sigmoidoscopy 1973 MMR Vaccines (1 of 1 - Stand lori series) 1974 Diabetes: Foot Exam 11/16/1983 Diabetes: Retinopathy Screening 11/16/1983 Hepatitis B Screening 11/16/1991 DTaP/Tdap/Td Vaccines (1 - Tdap) 1992 Hepatitis B Vaccines (1 of 3 - 19+ 3-dose series) 1992 Pneumococcal Vaccine: 50+ Ye ars (1 of 2 - PCV) 1992 Zoster Vaccines (1 of 2) 11/16/2023 COVID-19 Vaccine (1 - 2023-2 5 season) 2024 Influenza Vaccine (#1) 2024 Diabetes: Hemoglobin A1C 06/03/2025 12/01/2024 Lipid Panel 12/01/2025 12/01/2024 Hepatitis C Screening Completed 12/01/2024 SDOH Screening Completed 12/01/2024 HIB Vaccines Aged Out No longer eligi ble based on patient's age to complete this topic HPV Vaccines Aged Out No longer eligi ble based on patient's age to complete this topic Hepatitis A Vaccines Aged Out No long er eligible based on patient's age to complete this topic IPV Vaccines Aged Out No longer eligi ble based on patient's age to complete this topic Meningococcal B Vaccine Aged Out No l onger eligible based on patient's age to complete this topic Meningococcal Vaccine Aged Out No mayela yesenia eligible based on patient's age to complete this topic Rotavirus Vaccines Aged Out No longer eligible based on patient's age to complete this topic Procedures Procedure Name Priority Date/Time Associated Diagnosis Comments POCT URINE TOXICOLOGY SCREEN Routine 12/01/2024 8:57 AM EDT Routine general medical examination at a [facility] Dysuria Type 2 diabetes mellitus without complication [...] EDT Routine general medical examination at a [facility] Dysuria Type 2 diabetes mellitus without complication [...] EDT Type 2 diabetes mellitus without complication from Last 3 Months Results * (ABNORMAL) POCT URINE TOXICOLOGY SCREEN (12/01/2024 8:57 AM EDT) Pathologist [facility] THC/DEVANTE Positive(A) Negative MOP Negative Negative MET Gene Negative Negative AMP Negative Negative BZO Positive(A) Negative BAR Negative Negative MTD Negative Negative MDMA Negative Negative OXY Negative Negative BUP Negative Negative OPI Negative Negative Urine 12/01/2024 8:57 AM EDT Radha Mack MD POINT OF CARE TEST ENTER/EDIT ORDERABLES Final Result * (ABNORMAL) POCT Urinalysis dipstick (12/01/2024 8:57 AM EDT) Pathologist [facility] Glucose, UA Negative Negative, Not Found Bilirubin, UA Negative Negative Ketones, Urine Negative other, Negative mg/dL Specific [place], Urine >=1.030(A) 1.010, 1.015, 1.020, 1.025 BLOOD, POC other(A) Negative Comment:Large pH, UA 5.5 5.0 - 8.0 Protein, UA other(A) Negative Comment:>=300 mg/dL Urobilinogen, UA 0.2 Nitrite, UA Negative Negative Leukocytes, UA Negative Negative Urine 12/01/2024 8:57 AM EDT Radha Mack MD POINT OF CARE TEST ENTER/EDIT ORDERABLES Final Result * Hepatitis C antibody (12/01/2024 8:40 AM EDT) Pathologist [facility] HEPATITIS C ANTIBODY (REFL) NON-REACT KALYN NON-REACT KALYN [facility] Comment: HCV antibody was non-reactive. There is no laboratory evidence of HCV infection. In most cases, no further action is required. However, if recent HCV exposure is suspected, a test for HCV RNA (test code 93238) is suggested. For additional information please refer to http://education.FireDrillMe/faq/UEO46l0 (This link is being provided for informational/ educational purposes only.) Our records indicate that you have ordered a client custom reflex order code. Only the initial test was performed because we do not have a client custom reflex testing authorization request form on file for you. Please contact a client services analyst if you would like additional testing done on this patient or contact your executive vice president of sales to obtain a client custom reflex testing authorization request form. Blood Venous blood specimen / Unknown 12/01/2024 8:40 AM EDT 12/01/2024 2:37 PM EDT Narrative [facility] - 12/02/2024 2:12 PM EDT FASTING:NO FASTING: NO Resulting Agency Comment Performing Organization Information: Site ID: [id number] Name: [facility] Address: [address] [place] [phone] Director: Dimitri Thompson us Radha Mack MD LAB BLOOD ORDERABLES Final Re sult [facility] [address] [place] [address], * (ABNORMAL) CBC With Differential (12/01/2024 8:40 [...] Performing Organization Information: Site ID: [id number] Name: [facility] Address: [address] [place] [phone] Director: Dr. Parmjit Deleon Radha Mack MD LAB BLOOD ORDERABLES Final Re sult Performing Organization Address [facility] de Phone Number [address] [address], [place] * TSH (12/01/2024 8:40 AM EDT) TSH 4.08 0.40 - 4.50 mIU/L [facility] Blood Venous blood specimen / Unknown 12/01/2024 8:40 AM EDT 12/01/2024 2:37 PM EDT Narrative [facility] - 12/02/2024 2:12 PM EDT FASTING:NO FASTING: NO Resulting Agency Comment Performing Organization Information: Site ID: [id number] [facility]: [facility] Address: [address] [place] [phone] Director: Dimitri Thompson Radha Mack MD LAB BLOOD ORDERABLES Final Re sult Performing Organization Address [facility] de Phone Number [address] [address], [place] * Testosterone, Total, Males (12/01/2024 8:40 AM EDT) Testosterone 359 250 - 827 ng/dL [facility] Blood Venous blood specimen / Unknown 12/01/2024 8:40 AM EDT 12/01/2024 2:37 PM EDT Narrative [facility] - 12/02/2024 2:12 PM EDT FASTING:NO FASTING: NO Resulting Agency Comment Performing Organization Information: Site ID: [facility] Address: [address] [place] [phone] Director: Dimitri Thompson Radha Mack MD LAB BLOOD ORDERABLES Final Re sult Performing Organization Address [facility] de Phone Number [address] [address], * Magnesium (12/01/2024 8:40 AM EDT) [facility] Magnesium 2.1 1.5 - 2.5 mg/dL [facility] Blood Venous blood specimen / Unknown 12/01/2024 8:40 AM EDT 12/01/2024 2:37 PM EDT Narrative [facility] - 12/02/2024 2:12 PM EDT FASTING:NO FASTING: NO Resulting Agency Comment Performing Organization Information: Site ID: [facility] Address: [address] [place] [phone] Director: Dimitri Thompson Radha Mack MD LAB BLOOD ORDERABLES Final Re sult Performing Organization Address [facility] [place] [address], * (ABNORMAL) Lipid panel (12/01/2024 8:40 AM EDT) TRIGLYCERIDES 506(H) <=149 mg/dL [facility] CHOLESTEROL, TOTAL [...] Performing Organization Information: Site ID: [id number] Name: [facility] Address: [address] [place] [address] Director: Dr. Parmjit Deleon us Radha Mack MD LAB BLOOD ORDERABLES Final Re sult [facility] [address] [place] [address], * (ABNORMAL) Comprehensive metabolic panel (12/01/2024 8:40 [...] Performing Organization Information: Site ID: [id number] Name: [facility] Address: [address] [place] [address] Director: Dr. Parmjit Deleon us Radha Mack MD LAB BLOOD ORDERABLES Final Re sult [facility] [address] [place] [address], * (ABNORMAL) POCT HEMOGLOBIN A1C (12/01/2024 8:28 AM EDT) POC HGB A1C 6.7(A) <=5.6 % Blood 12/01/2024 8:28 AM EDT Radha Mack MD POINT OF CARE TEST ENTER/EDIT ORDERABLES Final Result from Last 3 Months Insurance [facility] Care Teams Mechanical Apprentice Relationship Specialty Start Date End Date Radha Mack MD [address] [place] [address] PCP - General Family Medicine 11/29/24
--- OUTSIDE RECORDS SUMMARY | 2025-01-17 23:13 | XMS_ITS | Referral Summary ---
Author Organization [facility] ([place], [place], [place], [place]) Address [address] [place] [address] Care Team Providers Care Aircraft Landing Gear Inspector Name Role Phone Unavailable Primary Care Provider [...] Date Sebastian rded Speak language other than Slovak at home Not on file 01/08/2024 Want [...] 01/08/2024 4:06 PM EDT Plan of Treatment Not on file Insurance [employer] [facility]
== END 2025-01-17 23:59 | disposition home or self-care (01) ==
LOC: LAB.DROPOF 23:06
PROVIDERS: PCP Nurse Practitioner; Visit Provider Nurse Practitioner
DX: N18.9 Chronic kidney disease, unspecified (principal)
CPT/HCPCS: 80053; 82043; 82570; 85025